=== PATIENT | female | born 1985 | race Caucasian/White ===

== ENCOUNTER 2017-12-13 00:06 | Emergency (ER) | payer OTHER ==
[2017-12-13 01:43] LABS: Absolute Lymphocytes (CBC) 2.6 K/uL (0.7-4.9); Absolute Monocytes 0.5 K/uL (0.1-1.3); Absolute Neutrophil 3.9 K/uL (1.8-8.0); Basophils % 0.7 % (0-1.3); Eosinophils % 1.7 % (0-4.4); Hematocrit 40.6 % (36.0-45.0); Lymphocytes % 35.5 % (15.3-44.8); MCH 32.4 pg (27.0-35.0); MCV 96.7 fL (80-100); MPV 8.3 fL (7.6-11.3); Monocytes % 7.5 % (3.3-12.3)
[2017-12-13 01:48] LABS: Protime INR 0.92
[2017-12-13 02:12] LABS: Bicarbonate 25 mEq/L (21-31); Glucose Level 95 mg/dL (65-120); Potassium 3.1 mEq/L (3.6-5.0); Sodium Level 133 mEq/L (135-145)
[2017-12-13 02:18] LABS: ALT/SGPT 15 IU/L (10-60); AST/SGOT 20 IU/L (10-42); Albumin 4.4 g/dL (3.2-5.5); Alkaline Phosphatase 53 IU/L (42-121); BUN Blood Urea Nitrogen 16 mg/dL (6-20); Bilirubin Direct 0.1 mg/dL (0-0.2); Bilirubin Total 0.8 mg/dL (0.3-1.2); Creatine Phosphokinase 51 IU/L (22-269); Glomerular Filtration Rate > 90 mL/min (=/>90); Magnesium 1.8 mg/dL (1.8-2.5); Protein, Total 7.1 g/dL (6.0-8.3)
[2017-12-13] MEDS ORDERED: NA CHLORIDE 0.9% 1,000 ML ONE (02:19)
[2017-12-13] MEDS ORDERED: KCL 20 MEQ/100 mL IVPB 20 MEQ/100 ML BAG IV ONE (02:20)
[2017-12-13 02:53] LABS: Thyroid Stimulating Hormone 6.86 uIU/mL (0.34-5.60)
--- NOTE | 2017-12-13 03:35 | EDPHYS ---
Physician Documentation [facility] Name: Sarai Sanches Age: 32 yrs Sex: Female : 1985 Arrival Date: 12/13/2017 Time: 00:08 Bed 25 Private MD: GENARO Physician Leroy Nieves HPI: 12/13 02:01 This 32 yrs old Female presents to ER via Ambulatory with complaints of Chest snw Pain, Nausea. 02:01 The patient or guardian reports chest pain that is located primarily in the anterior snw chest wall, bilaterally. The pain radiates to left back. Associated signs and symptoms: Pertinent positives: nausea. The chest pain is described as sharp, stabbing. Duration: The patient or guardian reports multiple episodes, that wax and wane. Severity of pain: At its worst the pain was moderate severe. The patient has experienced similar episodes in the past, trying to figure out what is happening over the past two weeks. Pt with hx of migraines. Had MRI which was normal. Pt had thyroidectomy in 2014. Two weeks later she had a seizure and struck her head, continued headaches constituted a repeat MRI which then showed a lacunar infarct. Hx of HTN. Father with hx of CVA at 33 years of age. . Had recent Echo and carotid doppler ultrasound that was negative.. 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 - Social history:: Smoking status: Patient/guardian denies using tobacco, Patient uses alcohol, occasionally. Patient/guardian denies using street drugs, IV drugs. ROS: 01:51 Constitutional: Negative for fever, chills, and weight loss, Eyes: Negative for injury, snw pain, redness, and discharge, ENT: Negative for injury, pain, and discharge, Neck: Negative for injury, pain, and swelling. 01:51 Back: Negative for injury and pain, : Negative for injury, bleeding, discharge, and swelling, MS/Extremity: Negative for injury and deformity, Skin: Negative for injury, rash, and discoloration, Neuro: Negative for headache, weakness, numbness, tingling, and seizure. 01:51 Cardiovascular: Positive for chest pain, of the anterior aspect of right upper chest, anterior aspect of left upper chest and left lateral posterior chest, palpitations. 01:51 Respiratory: Positive for dyspnea on exertion. 01:51 Abdomen/GI: Positive for nausea. Exam: 01:51 Constitutional: This is a well developed, well nourished patient who is awake, alert, snw and in no acute distress. Head/Face: Normocephalic, atraumatic. Eyes: Pupils equal round and reactive to light, extra-ocular motions intact. Lids and lashes normal. Conjunctiva and sclera are non-icteric and not injected. Cornea within normal limits. Periorbital areas with no swelling, redness, or edema. ENT: Nares patent. No nasal discharge, no septal abnormalities noted. Tympanic membranes are normal and external auditory canals are clear. Oropharynx with no redness, swelling, or masses, exudates, or evidence of obstruction, uvula midline. Mucous membranes moist. Neck: Trachea midline, no thyromegaly or masses palpated, and no cervical lymphadenopathy. Supple, full range of motion without nuchal rigidity, or vertebral point tenderness. No Meningismus. Chest/axilla: Normal chest wall appearance and motion. Nontender with no deformity. No lesions are appreciated. 01:51 Respiratory: Lungs have equal breath sounds bilaterally, clear to auscultation and percussion. No rales, rhonchi or wheezes noted. No increased work of breathing, no retractions or nasal flaring. Abdomen/GI: Soft, non-tender, with normal bowel sounds. No distension or tympany. No guarding or rebound. No evidence of tenderness throughout. Back: No spinal tenderness. No costovertebral tenderness. Full range of motion. MS/ Extremity: Pulses equal, no cyanosis. Neurovascular intact. Full, normal range of motion. Neuro: Awake and alert, GCS 15, oriented to person, place, time, and situation. Cranial nerves II-XII grossly intact. Motor strength 5/5 in all extremities. Sensory grossly intact. Cerebellar exam normal. Normal gait. Psych: Awake, alert, with orientation to person, place and time. Behavior, mood, and affect are within normal limits. 01:51 Cardiovascular: Rate: tachycardic, Rhythm: regular, Pulses: no pulse deficits are appreciated, Heart sounds: normal, Edema: is not appreciated, JVD: is not appreciated. 01:51 Skin: mottled at head and neck, cyanosis to fingertips (Raynaud's). Vital Signs: 00:37 BP 144 / 97; Pulse 92; Resp 16; Temp 98.1(O); Pulse Ox 99% on R/A; Weight 74.84 kg; ao Height 5 ft. 4 in. (162.56 cm); 02:09 BP 135 / 86; Pulse 90; Resp 16; Pulse Ox 100% on R/A; ao 03:25 BP 133 / 84; Pulse 84; Resp 14; Pulse Ox 100% on R/A; Pain 4/10; ao 04:55 BP 140 / 55; Pulse 82; Resp 16; Pulse Ox 100% on R/A; ao 00:37 Body Mass Index 28.32 (74.84 kg, 162.56 cm) ao MDM: 00:54 Patient medically screened. anne marie 03:04 Data reviewed: vital signs, nurses notes. Data interpreted: Pulse oximetry: on room air snw is 100 %. Interpretation: normal. Counseling: I had a detailed discussion with the patient and/or guardian regarding: the historical points, exam findings, and any diagnostic results supporting the discharge/admit diagnosis, the presence of at least one elevated blood pressure reading (>120/80) during this emergency department visit, lab results, radiology results. Physician consultation: Leroy Nieves MD was called at 03:05, was contacted at 03:05, regarding CT followup and dispo. 12/13 00:55 Order name: Basic Metabolic Panel; Complete Time: 03:33 snw 12/13 00:55 Order name: BNP; Complete Time: 02:12 snw 12/13 00:55 Order name: CBC with Diff; Complete Time: 02:12 snw 12/13 00:55 Order name: Ckmb; Complete Time: 03:33 snw 12/13 00:55 Order name: CPK; Complete Time: 03:33 snw 12/13 00:55 Order name: LFT's; Complete Time: 03:33 snw 12/13 00:55 Order name: Magnesium; Complete Time: 03:33 snw 12/13 00:55 Order name: PT-INR; Complete Time: 02:12 snw 12/13 00:55 Order name: Ptt, Activated; Complete Time: 02:12 snw 12/13 00:55 Order name: Troponin (emerg Dept Use Only); Complete Time: 02:12 snw 12/13 00:55 Order name: XRAY Chest (1 view); Complete Time: 17:48 snw 12/13 00:55 Order name: TSH; Complete Time: 03:33 snw 12/13 00:55 Order name: Test, Serum; Complete Time: 03:33 snw 12/13 02:54 Order name: T4 Free; Complete Time: 03:33 EDMS 12/13 00:55 Order name: EKG; Complete Time: 00:56 snw 12/13 00:55 Order name: Cardiac monitoring; Complete Time: 01:08 snw 12/13 00:55 Order name: EKG - Nurse/Tech; Complete Time: 01:08 snw 12/13 00:55 Order name: IV Saline Lock; Complete Time: 01:08 snw 12/13 00:55 Order name: Labs collected and sent; Complete Time: 01:08 snw 12/13 00:55 Order name: O2 Per Protocol; Complete Time: 01:08 snw 12/13 00:55 Order name: O2 Sat Monitoring; Complete Time: 01:08 snw 12/13 00:55 Order name: CT Chest For PE Angio; Complete Time: 17:48 snw Administered Medications: 02:30 Drug: Potassium Chloride 20 mEq Route: IV; Rate: calculated rate; Site: left ao antecubital; 06:24 Follow up: IV Status: Completed infusion; IV Intake: 1000ml ao 02:30 Drug: NS 0.9% 1000 ml Route: IV; Rate: 1 bolus; Site: left antecubital; ao 06:24 Follow up: IV Status: Completed infusion; IV Intake: 1000ml ao Disposition: 03:34 Co-signature as Attending Physician, Leroy Nieves MD I agree with the assessment and anne marie plan of care. Disposition: 12/13/17 03:34 Discharged to Home. Impression: Chest pain, unspecified, Hypokalemia. - Condition is Stable. - Discharge Instructions: Nonspecific Chest Pain, Potassium Content of Foods, Hypertension, Aspirin and Your Heart, Hypokalemia. - Prescriptions for Protonix 40 mg Oral Tablet - take 1 tablet by ORAL route once daily; 30 tablet. - Medication Reconciliation Form, Thank You Letter, Antibiotic Education, Prescription Opioid Use, Work release form form. - Follow up: Private Physician; When: 1 - 2 days; Reason: Recheck today's complaints, Continuance of care, Re-evaluation by your physician. Follow up: Emergency Department; When: As needed; Reason: Trouble breathing, Worsening of condition. Signatures: Dispatcher [employer] Leroy Daniels MD MD cha Therrien, Shelly, HOLLOW HANDLE BENCH WORKER-C HOLLOW HANDLE BENCH WORKER-Csnw Justin Arshad, RN YOVANA hayden
--- NOTE | 2017-12-13 03:35 | ER ---
Nurse's Notes [facility] Name: Sarai Sanches Age: 32 yrs Sex: Female : 1985 Arrival Date: 12/13/2017 Time: 00:08 Bed 25 Private MD: Diagnosis: Chest pain, unspecified;Hypokalemia Presentation: 12/13 00:22 Presenting complaint: Patient states: "I have chest pain that come and goes for few ao weeks. Today it started about 1999." Patient complains of dizziness and SOB also. Pain is described as stabbing in in the right side and over the left breast. Pain radiates to the left shoulder and neck. Transition of care: patient was not received from another setting of care. Onset of symptoms was December 12, 2017 at 20:00. Care prior to arrival: None. 00:22 Method Of Arrival: Ambulatory ao 00:22 Acuity: MARTINA 3 ao Triage Assessment: 01:09 General: Appears in no apparent distress. uncomfortable, Behavior is calm, cooperative, ao appropriate for age. Pain: Complains of pain in chest Pain radiates to Left shoulder and neck Pain currently is 6 out of 10 on a pain scale. Quality of pain is described as stabbing. EENT: No signs and/or symptoms were reported regarding the EENT system. Neuro: Level of Consciousness is awake, alert, obeys commands, Oriented to person, place, time, situation, Appropriate for age Moves all extremities. Speech is normal, Facial symmetry appears normal, Pupils are PERRLA. Cardiovascular: Patient's skin is warm and dry. Respiratory: Airway is patent Respiratory effort is even, unlabored, Respiratory pattern is regular, symmetrical. GI: Abdomen is non-distended. : No signs and/or symptoms were reported regarding the genitourinary system. Derm: Skin is intact, Skin is pink, warm \\T\\ dry. Skin temperature is warm. Musculoskeletal: Circulation, motion, and sensation intact. 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 - Social history:: Smoking status: Patient/guardian denies using tobacco, Patient uses alcohol, occasionally. Patient/guardian denies using street drugs, IV drugs. Screenin:09 Abuse screen: Denies threats or abuse. Denies injuries from another. Nutritional ao screening: No deficits noted. Tuberculosis screening: No symptoms or risk factors identified. Fall Risk None identified. Assessment: 01:10 General: See Triage notes. ao 01:10 Pain: Complains of pain in chest. ao 01:11 Pain: Pain began 4 hours ago. ao 02:09 Reassessment: Patient appears in no apparent distress at this time. Patient and/or ao family updated on plan of care and expected duration. Pain level reassessed. Patient is alert, oriented x 3, equal unlabored respirations, skin warm/dry/pink. Patient is alert/active/playful, equal unlabored respirations, skin warm/dry/pink. 03:25 Reassessment: Patient appears in no apparent distress at this time. Patient and/or ao family updated on plan of care and expected duration. Pain level reassessed. Patient is alert, oriented x 3, equal unlabored respirations, skin warm/dry/pink. Patient is getting fluids and potassium at this moment. 04:05 Reassessment: Patient continues to get fluids and potassium before she can be ao discharge. Potassium has about 1 hour left. 05:02 Reassessment: DC Instructions given to patient. Patient agree with the POC and to ao follow up with PCP. Patient has no questions at this time. Vital Signs: 00:37 BP 144 / 97; Pulse 92; Resp 16; Temp 98.1(O); Pulse Ox 99% on R/A; Weight 74.84 kg; ao Height 5 ft. 4 in. (162.56 cm); 02:09 BP 135 / 86; Pulse 90; Resp 16; Pulse Ox 100% on R/A; ao 03:25 BP 133 / 84; Pulse 84; Resp 14; Pulse Ox 100% on R/A; Pain 4/10; ao 04:55 BP 140 / 55; Pulse 82; Resp 16; Pulse Ox 100% on R/A; ao 00:37 Body Mass Index 28.32 (74.84 kg, 162.56 cm) ao ED Course: 00:08 Patient arrived in ED. do 00:13 Justin Arshad, RN is Primary Nurse. ao 00:26 Triage completed. ao 00:32 Arm band placed on right wrist. Patient placed in an exam room, on a stretcher, on ao quality assurance monitor body, on pulse oximetry. 00:53 Peggy Franklin FNP-C is PHCP. snw 00:53 Leroy Nieves MD is Attending Physician. snw 01:00 Initial lab(s) drawn, by me. Inserted saline lock: 20 gauge in left antecubital area, fc using aseptic technique. Blood collected. 01:11 Patient has correct armband on for positive identification. Pulse ox on. NIBP on. ao 01:12 Patient maintains SpO2 saturation greater than 95% on room air. ao 01:20 Radiology exam delayed due to lab results not completed at this time. (BUN/Creatinine). nj 02:18 X-ray completed. Portable x-ray completed in exam room. Patient tolerated procedure kw well. 02:20 XRAY Chest (1 view) In Process Unspecified. EDMS 03:03 CT Chest For PE Angio In Process Unspecified. EDMS 05:01 No provider procedures requiring assistance completed. IV discontinued, intact, ao bleeding controlled, No redness/swelling at site. Pressure dressing applied. Administered Medications: 02:30 Drug: Potassium Chloride 20 mEq Route: IV; Rate: calculated rate; Site: left ao antecubital; 06:24 Follow up: IV Status: Completed infusion; IV Intake: 1000ml ao 02:30 Drug: NS 0.9% 1000 ml Route: IV; Rate: 1 bolus; Site: left antecubital; ao 06:24 Follow up: IV Status: Completed infusion; IV Intake: 1000ml ao Intake: 06:24 IV: 1000ml; Total: 1000ml. ao 06:24 IV: 1000ml; Total: 2000ml. ao Outcome: 03:34 Discharge ordered by . anne marie 05:01 Discharged to home ambulatory. ao 05:01 Condition: stable 05:01 Discharge instructions given to patient, Instructed on discharge instructions, follow up and referral plans. Demonstrated understanding of instructions, follow-up care, Prescriptions given X 1. 05:04 Patient left the ED. ao Signatures: Dispatcher [employer] EDLeroy Villalba MD MD cha Therrien, Shelly, ELECTRONICS LEAD-C ELECTRONICS LEAD-Csnw Mica Maya, RN RN Alicia Xiong Alex RN RN Kavita Armenta, Alexis ware Corrections: (The following items were deleted from the chart) 02:09 01:10 Reassessment: Patient appears in no apparent distress at this time. Patient ao and/or family updated on plan of care and expected duration. Pain level reassessed. Patient is alert, oriented x 3, equal unlabored respirations, skin warm/dry/pink. Patient is alert/active/playful, equal unlabored respirations, skin warm/dry/pink. ao
--- NOTE | 2017-12-13 07:01 | EKG ---
Test Date: 2017-12-13 Test Time: 00:31:15 Can Washer: CARLYLE MEASUREMENT RESULTS: Intervals: Rate: 87 HI: 112 QRSD: 94 QT: 382 QTc: 459 [place]: P: 1 HI: 112 QRS: 44 T: 26 INTERPRETIVE STATEMENTS: Normal sinus rhythm Normal ECG No previous ECG available for comparison Electronically Signed On 12-13-17 07:01:10 CDT by Alonso Ruano
--- NOTE | 2017-12-13 07:22 | RAD REPORT ---
EXAM DESCRIPTION: CT - Chest For Pe Angio - 12/13/2017 6:48 am CLINICAL HISTORY: Chest pain for several weeks. Shortness of breath COMPARISON: None. TECHNIQUE: Dynamically enhanced axial 3 mm thick images of the chest were obtained during administra tion of <100> mL Isovue 370 IV contrast. Coronal and oblique reconstruction images were generated and reviewed. Exam utilizes a protocol for optimal evaluation of pulmonary arterial tree. A preliminary report was generated by virtual radiologic and reviewed prior to this dictation All CT scans are performed using dose optimization technique as appropriate and may include automated exposure control or mA/KV adjustment according to patient size. FINDINGS: A pulmonary embolus is not seen. A thoracic aortic aneurysm is not noted. A pleural effusion is not seen. A pericardial effusion is not seen. A lung consolidation is not present. Bilateral breast implants are present. A subcentimeter right thy roid nodule is present IMPRESSION: Negative for a pulmonary embolism.
--- NOTE | 2017-12-13 08:11 | RAD REPORT ---
EXAM DESCRIPTION: Scott Single View12/13/2017 2:23 am CLINICAL HISTORY: Chest pain COMPARISON: none FINDINGS: The lungs appear clear of acute infiltrate. The heart is normal size IMPRESSION: No acute abnormalities displayed
== END 2017-12-13 05:04 | disposition home or self-care (01) ==
LOC: ER 00:06
DX: E87.6 Hypokalemia (principal); I10 Essential (primary) hypertension; Z79.82 Long term (current) use of aspirin; Z86.73 Personal history of transient ischemic attack (TIA), and cerebral infarction without residual deficits
CPT/HCPCS: 36415; 71045; 71275; 80048; 80076; 82550; 82553; 83735; 83880; 84439; 84443; 84484; 84703; 85025; 85610; 85730; 93005; 96361; 96365; 96366; 99284; J7030; Q9967

== ENCOUNTER 2018-05-03 14:55 | Emergency (ER) | payer OTHER ==
--- OUTSIDE RECORDS SUMMARY | 2018-05-03 14:59 | XMS REPORT | Encounter Summary ---
:1985 Author Reason for Visit Immunization Instructions 1. Immunization Adacel (Tdap Adolesn/Adult)(PF)2Lf-(2.5-5-3-5mcg)-5 Lf/0.5 mL IM susp 2. Counseling Discussion Note: None recorded.Patient educational handouts: No information available. Plan of Care Reminders Provider Appointments None recorded. Lab None recorded. Referral None recorded. Procedures None recorded. Surgeries None recorded. Imaging None recorded. Medications Name Start Date acetaminophen 300 mg-codeine 30 mg tablet TAKE 1 OR 2 TABS BY MOUTH EVERY 4 TO 6 HOURS amoxicillin 875 mg-potassium clavulanate 125 mg tablet TAKE 1 TABLET BY MOUTH EVERY 12 HOURS FOR 7 DAYS azithromycin 250 mg tablet oxibmxeowaaevfu-jkuqwosyvusrvyw-RD 2 mg-30 mg-10 mg/5 mL syrup buspirone 10 mg tablet cefuroxime axetil 500 mg tablet ciprofloxacin 500 mg tablet TAKE 1 TABLET BY MOUTH FOR 5 DAYS cyanocobalamin (vit B-12) 1,000 mcg/mL injection solution cyclobenzaprine 5 mg tablet TAKE 1 TABLET BY MOUTH 3 TIMES A DAY NEEDED fluconazole 150 mg tablet TAKE 1 TABLET BY MOUTH FOR 1 DOSE hydrocodone 10 mg-acetaminophen 325 mg tablet TK 1 TO 2 TS PO Q 4 TO 6 H PRN hydrocodone 5 mg-acetaminophen 325 mg tablet hydroxyzine HCl 50 mg tablet TK 1 T PO BID PRF ANXIETY AND 2 TS HS PRN lamotrigine 100 mg tablet TK 1 T PO BID lamotrigine 25 mg tablet levothyroxine 75 mcg tablet TAKE ONE (1) TABLET(S) BY MOUTH DAILY. ONCE DAILY ON EMPTY STOMACH ORALLY 90 DAYS meloxicam 15 mg tablet methylprednisolone 4 mg tablets in a dose pack metronidazole 500 mg tablet TAKE 1 TABLET BY MOUTH TWICE A DAY FOR 7 DAYS nadolol 40 mg tablet 1 TABLET ONCE A DAY ORALLY 90 DAYS nitrofurantoin monohydrate/macrocrystals 100 mg capsule TAKE ONE CAPSULE BY MOUTH TWICE A DAY FOR 7 DAYS ProAir HFA 90 mcg/actuation aerosol inhaler INHALE 2 PUFFS EVERY 4 HOURS NEEDED sertraline 50 mg tablet Strattera 40 mg capsule TAKE 1 CAPSULE BY MOUTH TWICE DAILY tramadol 50 mg tablet TAKE 1 TABLET BY MOUTH EVERY 6 HOURS NEEDED FOR SEVERE PAIN trazodone 100 mg tablet Trintellix 10 mg tablet venlafaxine ER 150 mg capsule,extended release 24 hr TAKE ONE CAPSULE BY MOUTH EVERY DAY WITH FOOD venlafaxine ER 75 mg capsule,extended release 24 hr TAKE ONE (1) CAPSULE(S) BY MOUTH ONCE A DAY WITH FOOD. Medications Administered None recorded. Vitals None recorded. Lab Results None recorded. Allergies None recorded. Problems None recorded. Procedures None recorded. Vaccine List Vaccine Type Tdap 02/01/20170.5 mL Social History None recorded. Past Encounters 02/01/2017 Immunization; Counseling Neela Arshad PA-C: [address] [place] [address], Ph. History of Present Illness Immunization Reported By: Patient HPI: Immunization Request (normal) no symptoms. Immunization eligibility questions No vaccines in last month, No reaction to previous vaccines:, No Known Allergies Review of Systems Basic Reported By: Patient Constitutional: Constitutional: no fever Physical Exam Immunization Reported By: Patient General Appearance: General: well-developed, well-nourished, no acute distress
--- OUTSIDE RECORDS SUMMARY | 2018-05-03 14:59 | XMS REPORT | Continuity of Care Document ---
:1985 Author Organization Interface Problems Problem Status Onset Classification Date Comments Source Date Reported Immunization 02/02/20 Diagnosis 02/01/2017 [facility] 17 Counseling 02/02/20 Diagnosis 02/01/2017 [facility] 17 Anxiety Active Problem 04/21/2015 [facility] Hypothyroid Active Problem 04/21/2015 [facility] Migraine with Active Problem 02/06/2017 [facility] aura and without Family & status Internal Med migrainosus, not Assoc intractable Need for Active Diagnosis 02/06/2017 [facility] tuberculosis [facility] vaccination [facility] Seizures Active Problem 02/06/2017 [facility] Carpal tunnel Active Problem 02/06/2017 [facility] Acute cystitis Active Problem 02/06/2017 [facility] with hematuria [facility] Anxiety Active Problem 02/06/2017 [facility] Acquired Active Problem 02/06/2017 [facility] hypothyroidism [facility] ADHD Active Problem 02/06/2017 [facility] Insomnia Active Problem 02/06/2017 [facility] Thrombocytosis Active Diagnosis 04/21/2015 [facility] Encounter to Active Diagnosis 04/21/2015 [facility] discuss test [facility] results [facility] Hypercalcemia Active Diagnosis 04/21/2015 [facility] Intervertebral Active Diagnosis 04/21/2015 [facility] disc protrusion [facility] Hyperkalemia Active Diagnosis 04/21/2015 [facility] Routine general Active Diagnosis 01/07/2016 [facility] examination at a [facility] facility Palpitations Active Diagnosis 06/13/2016 [facility] SOB Active Diagnosis 05/06/2016 [facility] Chest pain Active Diagnosis 05/06/2016 [facility] Follow up Active Diagnosis 01/02/2017 [facility] Acute Active Diagnosis 10/21/2016 [facility] non-recurrent [facility] maxillary [facility] sinusitis [facility] Acute vaginitis Active Diagnosis 06/13/2016 [facility] Dysuria Active Diagnosis 06/13/2016 [facility] Medications Medication Details Route Status Patient Ordering Order Source Instructions Provider Date Zithromax Z-Jose 2 tablets Orally Active 250 MG Orally [place] [facility] on the first Once a day 2017 Family & day, then 1 Internal tablet daily Med Assoc for 4 days Bromfed DM 10 ml as Orally Active 30-2-10 Os[facility] needed MG/5ML Orally 2017 Family & every 6 hrs Internal [facility] Metronidazole 1 tablet Orally Active 500 MG Orally [facility] twice a day 2016 [facility] & (bid) [facility] Diflucan 1 tablet Orally Active 150 MG Orally [facility] Once a day 2016 [facility] Macrobid 1 capsule Orally Active 100 MG Orally [facility] with food twice a day 2016 [facility] (bid) [facility] Cipro 1 tablet Orally Active 500 MG Orally [place] [facility] Twice a day 2016 [facility] Diflucan 1 tablet Orally Active 150 MG Orally [place] [facility] once, and 2016 Family & another in 72 Internal hours [facility] ProAir HFA 2 puffs as Inhalation Active 108 (90 Base) [place] [facility] needed MCG/ACT 2016 Family & Inhalation Internal every 4 hrs, Med [facility] prn Augmentin 1 tablet Orally Active 875-125 MG [place] [facility] Orally every 2016 Family & 12 hrs [facility] Strattera 1 capsule Orally Active 40 mg Orally Ghebranious [facility] for first 2016 Family & week, can Internal increase to Med [facility] twice a day afterwards Effexor XR 1 capsule Orally Active 150 MG Orally [place] [facility] with food Once a day 2016 [facility] Silenor 1 tablet at Orally Active 6 MG Orally [place] [facility] bedtime Once a day 2016 [facility] Nadolol 1 tablet Orally Active 40 mg Orally [place] [facility] Once a day 2016 [facility] Effexor XR 1 capsule Orally No 75 mg Orally [place] [facility] with food Longer Once a day 2016 [facility] Active [facility] Meloxicam 1 tablet Orally Active 7.5 MG Orally Mat[place] Once a day 2014 [facility] Lexapro 1 tablet Orally No 20 mg Orally [place] Longer Once a day 2014 [facility] Active [facility] Acetaminophen acetaminophe Active [facility] 300 MG / n 300 Codeine mg-codeine Phosphate 30 MG 30 mg tablet Oral Tablet TAKE 1 OR 2 TABS BY MOUTH EVERY 4 TO 6 HOURS Amoxicillin 875 amoxicillin Active [facility] MG / 875 Clavulanate 125 mg-potassium MG Oral Tablet clavulanate 125 mg tablet TAKE 1 TABLET BY MOUTH EVERY 12 HOURS FOR 7 DAYS Azithromycin azithromycin Active [facility] 250 MG Oral 250 mg Tablet tablet Brompheniramine brompheniram Active [facility] Maleate 0.4 ine-pseudoep MG/ML / hedrine-DM 2 Dextromethorpha mg-30 mg-10 n Hydrobromide mg/5 mL 2 MG/ML / syrup Pseudoephedrine Hydrochloride 6 MG/ML Oral Solution buspirone buspirone 10 Active [facility] hydrochloride mg tablet 10 MG Oral Tablet Cefuroxime 500 cefuroxime Active [facility] MG Oral Tablet axetil 500 mg tablet Ciprofloxacin ciprofloxaci Active [facility] 500 MG Oral n 500 mg Tablet tablet TAKE 1 TABLET BY MOUTH FOR 5 DAYS Vitamin B 12 1 cyanocobalam Active [facility] MG/ML in (vit Injectable B-12) 1,000 Solution mcg/mL injection solution Cyclobenzaprine cyclobenzapr Active [facility] hydrochloride 5 ine 5 mg MG Oral Tablet tablet TAKE 1 TABLET BY MOUTH 3 TIMES A DAY NEEDED Fluconazole 150 fluconazole Active [facility] MG Oral Tablet 150 mg tablet TAKE 1 TABLET BY MOUTH FOR 1 DOSE Acetaminophen hydrocodone Active [facility] 325 MG / 10 Hydrocodone mg-acetamino Bitartrate 10 phen 325 mg MG Oral Tablet tablet TK 1 TO 2 TS PO Q 4 TO 6 H PRN Acetaminophen hydrocodone Active [facility] 325 MG / 5 Hydrocodone mg-acetamino Bitartrate 5 MG phen 325 mg Oral Tablet tablet Hydroxyzine hydroxyzine Active [facility] Hydrochloride HCl 50 mg 50 MG Oral tablet TK 1 Tablet T PO BID PRF ANXIETY AND 2 TS HS PRN lamotrigine 100 lamotrigine Active [facility] MG Oral Tablet 100 mg tablet TK 1 T PO BID lamotrigine 25 lamotrigine Active [facility] MG Oral Tablet 25 mg tablet Levothyroxine levothyroxin Active [facility] Sodium 0.075 MG e 75 mcg Oral Tablet tablet TAKE ONE (1) TABLET(S) BY MOUTH DAILY. ONCE DAILY ON EMPTY STOMACH ORALLY 90 DAYS meloxicam 15 MG meloxicam 15 Active [facility] Oral Tablet mg tablet Metronidazole metronidazol Active [facility] 500 MG Oral e 500 mg Tablet tablet TAKE 1 TABLET BY MOUTH TWICE A DAY FOR 7 DAYS Nadolol 40 MG nadolol 40 Active [facility] Oral Tablet mg tablet 1 TABLET ONCE A DAY ORALLY 90 DAYS NITROFURANTOIN, nitrofuranto Active [facility] MACROCRYSTALS in 25 MG / monohydrate/ Nitrofurantoin, macrocrystal Monohydrate 75 s 100 mg MG Oral Capsule capsule TAKE ONE CAPSULE BY MOUTH TWICE A DAY FOR 7 DAYS 200 ACTUAT ProAir HFA Active [facility] Albuterol 0.09 90 MG/ACTUAT mcg/actuatio Metered Dose n aerosol Inhaler inhaler [ProAir] INHALE 2 PUFFS EVERY 4 HOURS NEEDED Sertraline 50 sertraline Active [facility] MG Oral Tablet 50 mg tablet atomoxetine 40 Strattera 40 Active [facility] MG Oral Capsule mg capsule [Strattera] TAKE 1 CAPSULE BY MOUTH TWICE DAILY tramadol tramadol 50 Active [facility] hydrochloride mg tablet 50 MG Oral TAKE 1 Tablet TABLET BY MOUTH EVERY 6 HOURS NEEDED FOR SEVERE PAIN Trazodone trazodone Active [facility] Hydrochloride 100 mg 100 MG Oral tablet Tablet vortioxetine 10 Trintellix Active [facility] MG Oral Tablet 10 mg tablet [Trintellix] 24 HR venlafaxine Active [facility] venlafaxine 150 ER 150 mg MG Extended capsule,exte Release Oral nded release Capsule 24 hr TAKE ONE CAPSULE BY MOUTH EVERY DAY WITH FOOD 24 HR venlafaxine Active [facility] venlafaxine 75 ER 75 mg MG Extended capsule,exte Release Oral nded release Capsule 24 hr TAKE ONE (1) CAPSULE(S) BY MOUTH ONCE A DAY WITH FOOD. BuSpar 1 tablet Orally Active 10 MG Orally [facility] Twice a day [facility] Lamictal 1 Orally Active 100 MG Orally [facility] Twice a day [facility] Nadolol 1 tablet Orally Active 40 mg Orally [place] Once a day [facility] Levothyroxine 1 tablet orally Active 75 MCG orally [place] [facility] Sodium on empty Family & stomach qd [facility] Levothyroxine take one (1) by mouth Active 50 MCG by [facility] Sodium tablet(s) by mouth once Family & mouth daily. daily on Internal empty stomach [facility] Flexeril 1 tablet Orally Active 5 MG Orally Maty [facility] once at Family & bedtime [facility] Levothyroxine take one (1) Orally Active 75 MCG Orally [facility] [place] [facility] Sodium tablet(s) by once daily on Family & mouth daily. empty stomach [facility] Levothyroxine take one (1) Orally Active 75 MCG Orally [place]elle [facility] Sodium tablet(s) by once daily on Family & mouth daily. empty stomach [facility] BuSpar 1 tablet Orally Active 10 MG Orally [facility] Twice a day [facility] Strattera TAKE 1 NA No 40 MG [place] [facility] CAPSULE BY [place] [facility] & MOUTH TWICE Active Internal DAILY [facility] Allergies, Adverse Reactions, Alerts Substance Category Reaction Severity Reaction Status Date Comments Source type Reported Cymbalta Adverse Info Not Adverse Active [facility] Reaction Available Reaction 7 [facility] Ambien Adverse Info Not Adverse Active [facility] Reaction Available Reaction 7 [facility] Immunizations Immunization Date Given Site Status Last Comments Source Updated Tdap 02/01/2017 completed [facility] Results Order Results Value Reference Date Interpretation Comments Source Name Range Vital Signs Vital Sign Value Date Comments Source Weight 159 12/29/2016 [facility] Height 64 12/29/2016 [facility] Heart Rate 83 12/29/2016 [facility] Diastolic (mm Hg) 74 12/29/2016 [facility] Systolic (mm Hg) 138 12/29/2016 [facility] Weight 158 10/18/2016 [facility] Height 64 10/18/2016 [facility] Temperature Oral (F) 98.0 F 10/18/2016 [facility] Heart Rate 53 10/18/2016 [facility] Diastolic (mm Hg) 70 10/18/2016 [facility] Systolic (mm Hg) 110 10/18/2016 [facility] Weight 144 06/08/2016 [facility] Height 64 06/08/2016 [facility] Heart Rate 72 06/08/2016 [facility] Diastolic (mm Hg) 72 06/08/2016 [facility] Systolic (mm Hg) 115 06/08/2016 [facility] Weight 145 05/19/2016 [facility] Height 64 05/19/2016 [facility] Heart Rate 65 05/19/2016 [facility] Diastolic (mm Hg) 67 05/19/2016 [facility] Systolic (mm Hg) 110 05/19/2016 [facility] Weight 145 05/04/2016 [facility] Height 64 05/04/2016 [facility] Heart Rate 65 05/04/2016 [facility] Diastolic (mm Hg) 67 05/04/2016 [facility] Systolic (mm Hg) 110 05/04/2016 [facility] Weight 143 03/29/2016 [facility] Height 64 03/29/2016 [facility] Heart Rate 74 03/29/2016 [facility] Diastolic (mm Hg) 70 03/29/2016 [facility] Systolic (mm Hg) 110 03/29/2016 [facility] Weight 141 02/03/2016 [facility] Height 64 02/03/2016 [facility] Heart Rate 68 02/03/2016 [facility] Diastolic (mm Hg) 72 02/03/2016 [facility] Systolic (mm Hg) 116 02/03/2016 [facility] Weight 149 01/05/2016 [facility] Height 64 01/05/2016 [facility] Heart Rate 80 01/05/2016 [facility] Diastolic (mm Hg) 60 01/05/2016 [facility] Systolic (mm Hg) 120 01/05/2016 [facility] Weight 142 04/19/2015 [facility] Height 64 04/19/2015 [facility] Heart Rate 89 04/19/2015 [facility] Diastolic (mm Hg) 70 04/19/2015 [facility] Systolic (mm Hg) 112 04/19/2015 [facility] Encounters Location Location Encounter Encounter Reason Attending ADM DC Status Source Details Type Number For Provider Date Date Visit [facility] Unknown [id number] 04/17 04/17 [facility] [id number] /[facility] [id number] Internal and [id number] [facility] Unknown [id number] 04/17 04/17 [facility] [id number] /2014 [facility] [id number] Internal and [id number] [facility] Unknown [id number] 04/17 04/17 [facility] [id number] /2014 [facility] [id number] Internal and 20fa92 [facility] Unknown [id number] 04/17 04/17 [facility] [id number] /2014 [facility] [id number] Internal and [id number] [facility] Unknown [id number] 04/17 04/17 [facility] [id number] /2014 [facility] [id number] Internal and 6d47fe [facility] Unknown [id number] 04/17 04/17 [facility] [id number] /2014 [facility] [id number] Internal and [id number] [facility] Unknown [id number] 04/17 04/17 [facility] [id number] /2014 [facility] [id number] Internal and [id number] [facility] Unknown [id number] 04/17 04/17 [facility] [id number] /2014 [facility] [id number] Internal and f068cf [facility] Unknown [id number] 04/17 04/17 [facility] [id number] /2014 [facility] [id number] Internal and [id number] [facility] Unknown [id number] 04/17 04/17 [facility] [id number] /2014 [facility] [id number] Internal and fa11af [facility] Unknown [id number] 04/17 04/17 [facility] [id number] /2014 [facility] [id number] Internal and [id number] [facility] Unknown [id number] 04/17 04/17 [facility] [id number] /2014 [facility] [id number] Internal and a01db9 [facility] Unknown [id number] 04/17 04/17 [facility] [id number] /2014 [facility] [id number] Internal and 90b042 [facility] Unknown [id number] 04/17 04/17 [facility] [id number] /2014 [facility] [id number] Internal and [id number] [facility] Unknown [id number] 04/17 04/17 [facility] [id number] /2014 [facility] [id number] Internal and [id number] [facility] Unknown [id number] 04/17 04/17 [facility] [id number] /2014 [facility] [id number] Internal and 6x5198 [facility] results [id number] 04/19 04/19 [facility] [id number]-[id number] /2014 [facility] [id number] Internal and 619f17 [facility] [place] results [id number] 04/19 04/19 [facility] [id number] /2014 [facility] [id number] Internal and ec9e3a [facility] results [id number] 04/19 04/19 [facility] [id number] /2014 [facility] [id number] Internal and 20df47 [facility] results [id number] 04/19 04/19 [facility] [id number] /2014 [facility] [id number] Internal and e9dfe4 [facility] results [id number] 04/19 04/19 [facility] [id number] /2014 [facility] [id number] Internal and 62a47c [facility] results [id number] 04/19 04/19 [facility] [id number] /2014 [facility] [id number] Internal and b4ef51 [facility] results [id number] 04/19 04/19 [facility] [id number] /2014 [facility] [id number] Internal and 4jm730 [facility] results [id number] 04/19 04/19 [facility] [id number] /2014 [facility] [id number]-[id number] Internal and 943acb [facility] results [id number] 04/19 04/19 [facility] 11a-[id number] /2014 [facility] [id number] Internal and 0fy343 [facility] results [id number] 04/19 04/19 [facility] 3ff-[id number] /2014 [facility] [id number] Internal and a20d1d [facility] results [id number] 04/19 04/19 [facility] [id number]-l /2014 [facility] [id number] Internal and 3fb33a [facility] results [id number] 04/19 04/19 [facility] [id number] /2014 [facility] [id number] Internal and 1g674y [facility] results [id number] 04/19 04/19 [facility] [id number]-[id number] /2014 [facility] 52b-02feff Internal and d15e8d [facility] results [id number] 04/19 04/19 [facility] [id number]-x /2014 [facility] [id number] Internal and eeda36 [facility] results [id number] 04/19 04/19 [facility] dbe-47ce-8 /2014 [facility] [id number] Internal and f22a1d [facility] results [id number] 04/19 04/19 [facility] [id number]-a /2014 [facility] [id number] Internal and b1s600 [facility] PHYSICAL/FBW [id number] 01/04 01/04 [facility] bfc-488d-[id number] /2015 [facility] [id number] Internal and [id number] [facility] PHYSICAL/FBW [id number] 01/04 01/04 [facility] 21c-402b-[id number] /2015 [facility] [id number] Internal and 10eb0e [facility] PHYSICAL/FBW [id number] 01/04 01/04 [facility] 57d-[id number]-b /2015 [facility] [id number] Internal and 5f28be [facility] PHYSICAL/FBW [id number] 01/04 01/04 [facility] 5ca-495d-[id number] /2015 [facility] [id number] Internal and 7e730f [facility] PHYSICAL/FBW [id number] 01/04 01/04 [facility] [id number]-p /2015 [facility] [id number]-[id number] Internal and 881e62 [facility] PHYSICAL/FBW [id number] 01/04 01/04 [facility] [id number] /2015 [facility] [id number] Internal and bcc0f6 [facility] PHYSICAL/FBW [id number] 01/04 01/04 [facility] 83d-4360-a /2015 [facility] [id number] Internal and 7d2b09 [facility] PHYSICAL/FBW [id number] 01/04 01/04 [facility] [id number]-n /2015 [facility] [id number] Internal and dee3bd [facility] PHYSICAL/FBW [id number] 01/04 01/04 [facility] 3j2-9l3y-6 /2015 [facility] [id number] Internal and 77f8f3 [facility] PHYSICAL/FBW [id number] 01/04 01/04 [facility] 7dd-43a8-8 /2015 [facility] [id number]-m61sf3 Internal and 7e36ca [facility] PHYSICAL/FBW [id number] 01/04 01/04 [facility] 8r9-099h-4 /2015 [facility] [id number] Internal and g03042 [facility] PHYSICAL/FBW [id number] 01/04 01/04 [facility] [id number] /2015 [facility] [id number] Internal and 4fb13b [facility] PHYSICAL/FBW [id number] 01/04 01/04 [facility] [id number]-a /2015 [facility] [id number]-b1aca0 Internal and d801c0 [facility] PHYSICAL/FBW [id number] 01/04 01/04 [facility] [id number]-[id number] /2015 [facility] [id number]-[id number] Internal and 8dfcb1 [facility] MEDICATION [id number] 02/02 02/02 [facility] [id number]-n /2015 [facility] [id number] Internal and 41o093 [facility] MEDICATION [id number] 02/02 02/02 [facility] [id number] /2015 [facility] [id number] Internal and 1eb8e4 [facility] MEDICATION [id number] 02/02 02/02 [facility] [id number]-0436-m /2015 [facility] [id number] Internal and f7f4a4 [facility] MEDICATION [id number] 02/02 02/02 [facility] 32d-4128-b /2015 [facility] [id number] Internal and 5098ee [facility] MEDICATION [id number] 02/02 02/02 [facility] 934-47a2-9 /2015 [facility] [id number] Internal and 82b0c6 [facility] MEDICATION [id number] 02/02 02/02 [facility] cdb-[id number]-a /2015 [facility] [id number] Internal and 78aa2f [facility] MEDICATION [id number] 02/02 02/02 [facility] 592-4383-[id number] /2015 [facility] [id number] Internal and 143e1b [facility] MEDICATION [id number] 02/02 02/02 [facility] ab4-46cd-8 /2015 [facility] [id number] Internal and [id number] [facility] MEDICATION [id number] 02/02 02/02 [facility] 6m5-5r78-p /2015 [facility] [id number] Internal and 4448ab [facility] MEDICATION [id number] 02/02 02/02 [facility] 38a-[id number]-a /2015 [facility] [id number] Internal and 7f87be [facility] MEDICATION [id number] 02/02 02/02 [facility] bfc-4428-9 /2015 [facility] [id number] Internal and f986f1 [facility] MEDICATION [id number] 02/02 02/02 [facility] [id number] /2015 [facility] [id number]-ra2sh2 Internal and 6d16ef [facility] Unknown [id number] 02/03 02/03 [facility] [id number] /2015 [facility] [id number] Internal and 5e11f2 [facility] Unknown [id number] 02/03 02/03 [facility] w55-8881-[id number] /2015 [facility] [id number] Internal and e0be77 [facility] Unknown [id number] 02/03 02/03 [facility] [id number] /2015 [facility] [id number] Internal and a1dbe1 [facility] Unknown [id number] 02/03 02/03 [facility] da2-400c-a /2015 [facility] [id number]-05ced9 Internal and 57a45b [facility] Unknown [id number] 02/03 02/03 [facility] [id number]-[id number]-[id number] /2015 [facility] [id number]-[id number] Internal and f58a66 [facility] Unknown [id number] 02/03 02/03 [facility] [id number] /2015 [facility] [id number] Internal and 9a0e9a [facility] Unknown [id number] 02/03 02/03 [facility] [id number]-[id number] /2015 [facility] [id number] Internal and ob116c [facility] Unknown [id number] 02/03 02/03 [facility] [id number] /2015 [facility] [id number] Internal and fc9ad7 [facility] Unknown [id number] 02/03 02/03 [facility] [id number]-[id number] /2015 [facility] [id number] Internal and f80f40 [facility] Unknown [id number] 02/03 02/03 [facility] [id number] /2015 [facility] [id number] Internal and 256eb7 [facility] Unknown [id number] 02/03 02/03 [facility] [id number] /2015 [facility] [id number] Internal and 2ebcdd [facility] Unknown [id number] 02/03 02/03 [facility] [id number] /2015 [facility] [id number] Internal and a3h680 [facility] Unknown [id number] 02/03 02/03 [facility] [id number]-[id number] /2015 [facility] [id number] Internal and [id number] [facility] Needs call [id number] 02/23 02/23 [facility] back from [id number] /2015 [facility] Medical [id number] Internal and Staff [id number] [facility] Needs call [id number] 02/23 02/23 [facility] back from [id number] /2015 [facility] Medical [id number] Internal and Staff [id number] [facility] Mike Needs call [id number] 02/23 02/23 Mike Family back from [id number] /2015 [facility] [id number] Internal and Staff [id number] [facility] Mike Needs call [id number] 02/23 02/23 Mike Family back from [id number]-[id number]-a /2015 [facility] [id number] Internal and Staff [id number] [facility] Mike Needs call [id number] 02/23 02/23 Mike Family back from [id number]-a /2015 [facility] [id number] Internal and Staff [id number] [facility] Mike Needs call [id number] 02/23 02/23 Mike Family back from [id number]-d /2015 [facility] [id number] Internal and Staff [id number] [facility] Mike Needs call [id number] 02/23 02/23 Mike Family back from [id number]-1 /2015 [facility] [id number] Internal and Staff [id number] [facility] Mike Needs call [id number] 02/23 02/23 Mike Family back from [id number]-b /2015 [facility] [id number] Internal and Staff [id number] [facility] Mike Needs call [id number] 02/23 02/23 Mike Family back from [id number]-1482-1 /2015 [facility] [id number] Internal and Staff [id number] [facility] Mike Needs call [id number] 02/23 02/23 Mike Family back from 236-4d45-8 /2015 [facility] [id number] Internal and Staff [id number] [facility] Mike Needs call [id number] 02/23 02/23 Mike Family back from [id number]-i /2015 [facility] [id number] Internal and Staff [id number] [facility] Mike Unknown [id number] 03/10 03/10 Mike Clarke 14e-[id number] /2015 [facility] [id number] Internal and [id number] [facility] Mike Unknown [id number] 03/10 03/10 Mike Clarke [id number] /2015 [facility] [id number] Internal and [id number] [facility] Mike Unknown [id number] 03/10 03/10 Mike Clarke 8aa-4915-b /2015 [facility] [id number] Internal and [id number] [facility] Mike Unknown [id number] 03/10 03/10 Mike Clarke 48a-[id number] /2015 [facility] [id number] Internal and 57s020 [facility] Mike Unknown [id number] 03/10 03/10 Mike Clarke 284-4631-b /2015 [facility] 09a-5dec11 Internal and 0f7c3f [facility] Mike Unknown [id number] 03/10 03/10 Mike Clarke [id number] /2015 [facility] [id number] Internal and 13737d [facility] Mike Unknown [id number] 03/10 03/10 Mike Clarke [id number]-a /2015 [facility] [id number] Internal and 2bfe45 [facility] Mike Unknown [id number] 03/10 03/10 Mike Clarke 760-400e-b /2015 [facility] [id number] Internal and [id number] [facility] Mike Unknown [id number] 03/10 03/10 Mike Clarke 953-4791-8 /2015 [facility] [id number] Internal and 507b56 [facility] Mike Unknown [id number] 03/10 03/10 Mike Clarke 38e-4890-a /2015 [facility] [id number] Internal and ca2486 [facility] Mike Thyroid [id number] 03/29 03/29 Mike Family check [id number] /2015 [facility] [id number] Internal and 2697b7 [facility] Mike Thyroid [id number] 03/29 03/29 Mike Family check 288-4e94-b /2015 [facility] [id number]-[id number] Internal and e525ea [facility] Mike Thyroid [id number] 03/29 03/29 Mike Family check [id number] /2015 [facility] [id number] Internal and [id number] [facility] Mike Thyroid [id number] 03/29 03/29 Mike Family check [id number]-[id number] /2015 [facility] [id number] Internal and 63fe00 [facility] Mike Thyroid [id number] 03/29 03/29 Mike Family check [id number] /2015 [facility] [id number] Internal and 1f5f7f [facility] Mike Thyroid [id number] 03/29 03/29 Mike Family check [id number]-b /2015 [facility] [id number] Internal and ddf4fa [facility] Mike Thyroid [id number] 03/29 03/29 Mike Family check 712-4957-8 /2015 [facility] 458-2y215s Internal and afc65e [facility] Mike Thyroid [id number] 03/29 03/29 Mike Family check [id number] /2015 [facility] [id number] Internal and f0bc0b [facility] Mike Thyroid [id number] 03/29 03/29 Mike Clarke check [id number] /2015 [facility] [id number] Internal and 0m2759 [facility] Mike Unknown [id number] 04/05 04/05 Mike Clarke [id number] /2015 [facility] [id number] Internal and [id number] [facility] Mike Unknown [id number] 04/05 04/05 Mike Clarke 44a-4040-8 /2015 [facility] [id number] Internal and 982d7c [facility] Mike Unknown [id number] 04/05 04/05 Mike Clarke [id number]-[id number] /2015 [facility] [id number] Internal and [id number] [facility] Mike Unknown [id number] 04/05 04/05 Mike Clarke 00c-49ec-b /2015 [facility] [id number] Internal and 83q422 [facility] Mike Unknown [id number] 04/05 04/05 Mike Clarke [id number] /2015 [facility] [id number] Internal and 9g908r [facility] iMke Unknown [id number] 04/05 04/05 Mike Clarke [id number] /2015 [facility] [id number] Internal and 96044e [facility] Mike Unknown [id number] 04/05 04/05 Mike Clarke [id number] /2015 [facility] [id number] Internal and [id number] [facility] Mike Unknown [id number] 04/05 04/05 Mike Clarke [id number]-[id number] /2015 [facility] [id number] Internal and [id number] [facility] Mike Having heart [id number] 05/04 05/04 Mike Clarke palpitations [id number] /2015 [facility] [id number] Internal and 5x7753 [facility] Mike Having heart [id number] 05/04 05/04 [facility] palpitations 289-4dfc-8 /2015 [facility] [id number] Internal and 1v2404 [facility] Mike Having heart [id number] 05/04 05/04 Mike Family palpitations 778-4bc2-8 /2015 [facility] [id number] Internal and 14f663 [facility] Mike Having heart [id number] 05/04 05/04 Mike Family palpitations [id number]-a /2015 [facility] [id number] Internal and z06574 [facility] Mike Having heart [id number] 05/04 05/04 Mike Family palpitations r58-76r0-5 /2015 [facility] [id number] Internal and 916376 [facility] Mike Having heart [id number] 05/04 05/04 Mike Family palpitations cfe-4089-b /2015 [facility] [id number]-f95847 Internal and e6h762 [facility] Mike Having heart [id number] 05/04 05/04 Mike Family palpitations dac-[id number]-9 /2015 [facility] 148-2af59b Internal and 60097s [facility] Miek VALADEZ/JAJA-HM [id number] 05/18 05/18 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 [id number]-b /2015 [facility] [id number] Internal and ffbe14 [facility] Mike VALADEZ/JAJA-HM [id number] 05/18 05/18 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 229-487b-a /2015 [facility] [id number]-898b4c Internal and a4fe3e [facility] [place]/JAJA-HM [id number] 05/18 05/18 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 a51-1839-l /2015 [facility] [id number]-[id number] Internal and 734a49 [facility] Mike [place]/JAJA-HM [id number] 05/18 05/18 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 99a-4275-b /2015 [facility] [id number] Internal and 41424t [facility] Mike VALADEZ/[facility] [id number] 05/18 05/18 Mike NORIEGA [id number]-l /2015 [facility] [id number] Internal and cd2b63 [facility] Mike VALADEZ/[facility] [id number] 05/18 05/18 Mike NORIEGA [id number] /2015 [facility] [id number] Internal and ebcdbf [facility] Mike RORY/NELLIE [id number] 05/19 05/19 Mike Clarke [facility] [id number] /2015 [facility] [id number] Internal and b12774 [facility] Mike RORY/NELLIE [id number] 05/19 05/19 Mike Clarke [facility] 7ad-4929-a /2015 [facility] [id number] Internal and 3d3729 [facility] Mike VALADEZ/NELLIE [id number]-[id number] 05/19 05/19 Mike Clarke [facility] 27b-43c0-9 /2015 [facility] [id number]-fddd04 Internal and 0sj882 [facility] Mike RORY/NELLIE [id number] 05/19 05/19 Mike Clarke [facility] [id number]-a /2015 [facility] [id number] Internal and f9b6fe [facility] Mike VALADEZ/NELLIE [id number] 05/19 05/19 Mike Clarke [facility] 10d-4bc5-9 /2015 [facility] [id number] Internal and a02cb4 [facility] [place] Unknown [id number] 06/06 06/06 Mike Clarke [id number]-a /2015 [facility] [id number] Internal and 70bd89 [facility] Mike Unknown [id number] 06/06 06/06 Mike Clarke 8af-[id number] /2015 [facility] [id number] Internal and 342641 [facility] Mike Unknown [id number] 06/06 06/06 Mike Clarke [id number]-n /2015 [facility] [id number] Internal and 865987 [facility] Mike Unknown [id number] 06/06 06/06 Mike Clarke 07f-[id number]-a /2015 [facility] [id number] Internal and [id number] [facility] Mike yeast [id number] 06/08 06/08 Mike Family infection [id number] /2015 [facility] [id number] Internal and 478b9d [facility] Mike yeast [id number] 06/08 06/08 Mike Family infection [id number]-d /2015 [facility] [id number] Internal and 222684 [facility] Mike yeast [id number] 06/08 06/08 Mike Family infection [id number] /2015 [facility] [id number] Internal and be9ba4 [facility] Mike Unknown [id number] 06/14 06/14 Mike Clarke 889-474a-9 /2015 [facility] [id number] Internal and eedc98 [facility] Mike Unknown [id number] 06/14 06/14 Mike Clarke 735-44d8-b /2015 [facility] [id number]-[id number] Internal and 5c35de [facility] Mike cough, runny [id number] 10/18 10/18 Mike Clarke nose de4-4155-9 /2016 [facility] [id number] Internal and 8dbf32 [facility] DARRIUS - Neela Arshad, [id number] Neela 02/01 [facility] JESUS: [address] [id number]-[id number] Jeancarlos /2016 cassidy Almaguer [id number] [address], [address] [place] [address], Ph. Procedures Procedure Code Date Perfomer Comments Source
--- OUTSIDE RECORDS SUMMARY | 2018-05-03 14:59 | XMS REPORT ---
:1985 Author Organization e[employer]Works Care Team Providers Name Role Phone Vicki Sanchez Provider Role Unavailable Allergies No Known Allergies Problems Problem Type Condition Code Onset Dates Condition Status Problem Carpal tunnel syndrome G56.00 Active Problem ADHD (attention deficit F90.9 Active hyperactivity disorder) Problem Seizures R56.9 Active Problem Acquired hypothyroidism E03.9 Active Problem Migraine with aura and without G43.109 Active status migrainosus, not intractable Problem Insomnia G47.00 Active Problem Anxiety F41.9 Active Medications Medication Code Code Instructions Start End Date Status Dosage System Date Levothyroxine [facility] 07859-21 75 MCG orally on Active 1 tablet Sodium 05-10 empty stomach qd Results No Known Results Summary Purpose eClinicalWorks Submission
--- OUTSIDE RECORDS SUMMARY | 2018-05-03 15:00 | XMS REPORT ---
:1985 Author Organization eClinicalWorks Care Team Providers Name Role Phone Vicki Sanchez Provider Role Unavailable Encounters Encounter Location Date Unknown [facility] February 04, 2016 results [facility] Apr 19, 2015 Unknown [facility] Apr 16, 2015 PHYSICAL/FBW [facility] January Problems Problem Type Condition ICD-9 Code Onset Dates Condition Status Problem Anxiety F41.9 Active Problem Acquired hypothyroidism E03.9 Active Problem Insomnia G47.00 Active Problem Migraine with aura and without G43.109 Active status migrainosus, not intractable Medications Medication Code System Code Instructions Start End Status Dosage Date Date Levothyroxine MEDISPAN 20941-88 75 MCG Orally Active take one Sodium 55-00 once daily on (1) empty stomach tablet(s) by mouth daily. Social History Social History Element Qualifiers Date Reported Last Bone Density: . never February 03, 2016 Last Colonoscopy: . 2009 February 03, 2016 Ethnicity . Status , Is croatian February 03, 2016 your primary language? Yes Where or with whom do you live ? . with self February 03, 2016 Flu Vaccine: . 2014 February 03, 2016 children . None February 03, 2016 Tobacco Use: . Are you a: never smoker February 03, 2016 Use of recreational / street drugs? . Answer: No February 03, 2016 Marital Status: . February 03, 2016 Do you drink alcohol? . Status: Yes, Type: Beer, How February 03, 2016 often? Rarely, How much? Rarely Occupation: employed. [employer] February 03, 2016 Summary Purpose eClinicalWorks Submission
--- OUTSIDE RECORDS SUMMARY | 2018-05-03 15:00 | XMS REPORT ---
:1985 Author Organization eClinicalWorks Care Team Providers Name Role Phone Vicki Sanchez Provider Role Unavailable Encounters Encounter Location Date Unknown [facility] and February 04, 2016 [facility] MEDICATION [facility] and February 03, 2016 [facility] Needs call back from Medical Staff [facility] and February 24, 2016 [facility] Unknown [facility] and March 10, 2016 [facility] results [facility] and Apr 19, 2015 [facility] Unknown [facility] and Apr 16, 2015 [facility] PHYSICAL/FBW [facility] and January 05, 2016 [facility] Problems Problem Type Condition ICD-9 Code Onset Dates Condition Status Problem Anxiety F41.9 Active Problem Acquired hypothyroidism E03.9 Active Problem Insomnia G47.00 Active Problem Migraine with aura and without G43.109 Active status migrainosus, not intractable Medications Medication Code System Code Instructions Start Date End Date Status Dosage Nadolol MEDISPAN [address] 40 mg Orally Once January 04, Active 1 tablet -01 a day 2015 Social History Social History Element Qualifiers Date Reported Last Bone Density: . never February 03, 2016 Last Colonoscopy: . 2009 February 03, 2016 Ethnicity . Status , Is yi February 03, 2016 your primary language? Yes [...]
--- OUTSIDE RECORDS SUMMARY | 2018-05-03 15:00 | XMS REPORT ---
:1985 Author Organization eClinicalWorks Care Team Providers Name Role Phone Kaylynn Brewer Provider Role Unavailable Allergies, Adverse Reactions, Alerts Substance Reaction Event Type Cymbalta Info Not Available Drug Allergy Ambien Info Not Available Drug Allergy Encounters Encounter Location Date Unknown [facility] and February 04, 2016 [facility] MEDICATION [facility] and February 03, 2016 [facility] Needs call back from Medical Staff [facility] and February 24, 2016 [facility] Unknown [facility] and March 10, 2016 [facility] results [facility] and Apr 19, 2015 [facility] Unknown [facility] and Apr 16, 2015 [facility] PHYSICAL/FBW [facility] and January 05, 2016 [facility] Having heart palpitations [facility] and May 04, 2016 [facility] Thyroid check [facility] and March 29, 2016 [facility] Unknown [facility] and Apr 05, 2016 [facility] Problems Problem Type Condition ICD-9 Code Onset Dates Condition Status Assessment SOB (shortness of breath) R06.02 Active Assessment Chest pain R07.9 Active Problem ADHD (attention deficit F90.9 Active hyperactivity disorder) Problem Insomnia G47.00 Active Problem Carpal tunnel syndrome G56.00 Active Problem Migraine with aura and without G43.109 Active status migrainosus, not intractable Assessment Palpitations R00.2 Active Problem Anxiety F41.9 Active Problem Acquired hypothyroidism E03.9 Active Medications Medication Code System Code Instructions Start End Status Dosage Date Date Levothyroxine MEDISPAN 51247-87 75 MCG Orally Active take one Sodium 05-01 once daily on (1) empty stomach tablet(s) by mouth daily. Effexor XR MEDISPAN 89557-61 150 MG Orally February 23, Active 1 capsule 36-02 Once a day 2015 with food Silenor MEDISPAN 01311-87 6 MG Orally Once February 02, Active 1 tablet 06-03 a day 2015 at bedtime Strattera MEDISPAN 12601-88 40 mg Orally for March 29, Active 1 capsule -30 first week, 2015 increase to twice a day afterwards Nadolol MEDISPAN 06913-01 40 mg Orally January 04, Active 1 tablet 36-01 Once a day 2015 Augmentin MEDISPAN 83311-45 875-125 MG May 04May Active 1 tablet 88-14 Orally every 12 2015 08, hrs 2016 ProAir HFA MEDISPAN 67023-92 108 (90 Base) May 04, Active 2 puffs as 51-85 MCG/ACT 2015 needed Inhalation every 4 hrs, prn Social History Social History Element Qualifiers Date Reported Last Bone Density: . never May 04, 2016 Last Colonoscopy: . 2009 May 04, 2016 Ethnicity . Status , Is arabic May 04, 2016 your primary language? Yes Where or with whom do you live ? . with self May 04, 2016 Flu Vaccine: . 2013May 04, 2016 children . None May 04, 2016 Tobacco Use: . Are you a: never smoker May 04, 2016 Use of recreational / street drugs? . Answer: No May 04, 2016 Marital Status: . May 04, 2016 Do you drink alcohol? . Status: Yes, Type: Beer, How May 04, 2016 often? Rarely, How much? 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
--- OUTSIDE RECORDS SUMMARY | 2018-05-03 15:00 | XMS REPORT ---
:1985 Author Organization [facility] Care Team Providers Name Role Phone Jaja Brewer Provider Role Unavailable Encounters Encounter Location Date Unknown [facility] and February 04, 2016 [facility] MEDICATION [facility] and February 03, 2016 [facility] Needs call back from Medical Staff [facility] and February 24, 2016 [facility] Unknown [facility] and March 10, 2016 [facility] results [facility] and Apr 19, 2015 [facility] [place]/JAJA-HM ATHLETIC SCOUT [facility] and May 18, 2016 [facility] Unknown [facility] and Apr 16, 2015 [facility] PHYSICAL/FBW [facility] and January 05, 2016 [facility] Having heart palpitations [facility] and May 04, 2016 [facility] Thyroid check [facility] and March 29, 2016 [facility] Unknown [facility] and Apr 05, 2016 [facility] Problems Problem Type Condition ICD-9 Code Onset Dates Condition Status Problem ADHD (attention deficit F90.9 Active hyperactivity disorder) Problem Insomnia G47.00 Active Problem Carpal tunnel syndrome G56.00 Active Problem Migraine with aura and without G43.109 Active status migrainosus, not intractable Assessment Palpitations R00.2 Active Problem Anxiety F41.9 Active Problem Acquired hypothyroidism E03.9 Active Medications Medication Code System Code Instructions Start End Status Dosage Date Date Levothyroxine MEDISPAN 21824-39 75 MCG Orally Active take one Sodium 05-01 once daily on (1) empty stomach tablet(s) by mouth daily. Strattera MEDISPAN 73058-67 40 mg Orally for March 29, Active 1 capsule - first week, 2015 increase to twice a day afterwards Effexor XR MEDISPAN 27697-44 150 MG Orally February 23, Active 1 capsule 36-02 Once a day 2015 with food ProAir HFA MEDISPAN 14525-19 108 (90 Base) May 04, Active 2 puffs as 51-85 MCG/ACT 2016 needed Inhalation every 4 hrs, prn Nadolol MEDISPAN 81962-32 40 mg Orally January 04, Active 1 tablet 36-01 Once a day 2015 Silenor MEDISPAN 24036-46 6 MG Orally Once February 02, Active 1 tablet 06-03 a day 2015 at bedtime Social History Social History Element Qualifiers Date Reported Last Bone Density: . never May 04, 2016 Last Colonoscopy: . 2008May 04, 2016 Ethnicity . Status , Is greenlandic May 04, 2016 your primary language? Yes [...] often? Rarely, How much? Rarely Occupation: employed. [employer] May 04, 2016 Summary Purpose eClinicalWorks Submission
--- OUTSIDE RECORDS SUMMARY | 2018-05-03 15:00 | XMS REPORT ---
:1985 [facility] Team Providers Name Role Phone Kaylynn Brewer Provider Role Unavailable Allergies, Adverse Reactions, Alerts Substance Reaction Event Type Cymbalta Info Not Available Drug Allergy Ambien Info Not Available Drug Allergy Encounters Encounter Location Date Unknown [facility] and February 04, 2016 [facility] MEDICATION [facility] and February 03, 2016 [facility] Needs call back from Medical Staff [facility] and February 24, 2016 [facility] Unknown [facility] and March 10, 2016 [facility] results [facility] and Apr 19, 2015 [facility] Unknown [facility] and Apr 16, 2015 [facility] PHYSICAL/FBW [facility] and January 05, 2016 [facility] Thyroid check [facility] and March 29, 2016 [facility] Problems Problem Type Condition ICD-9 Code Onset Dates Condition Status Assessment Carpal tunnel syndrome G56.00 Active Assessment ADHD (attention deficit F90.9 Active hyperactivity disorder) Problem ADHD (attention deficit F90.9 Active hyperactivity disorder) Problem Insomnia G47.00 Active Problem Carpal tunnel syndrome G56.00 Active Problem Migraine with aura and without G43.109 Active status migrainosus, not intractable Assessment Acquired hypothyroidism E03.9 Active Problem Anxiety F41.9 Active Problem Acquired hypothyroidism E03.9 Active Medications Medication Code System Code Instructions Start End Status Dosage Date Date Strattera MEDISPAN 14360-50 40 mg Orally for March 29, Active 1 capsule - first week, 2015 increase to twice a day afterwards Levothyroxine MEDISPAN 71688-43 75 MCG Orally Active take one Sodium 05-01 once daily on (1) empty stomach tablet(s) by mouth daily. Silenor MEDISPAN 87918-61 6 MG Orally Once February 02, Active 1 tablet 06-03 a day 2015 at bedtime Effexor XR MEDISPAN 75753-56 150 MG Orally February 23, Active 1 capsule 36-02 Once a day 2015 with food Nadolol MEDISPAN 25522-34 40 mg Orally January 04, Active 1 tablet 36-01 Once a day 2015 Social History Social History Element Qualifiers Date Reported Last Bone Density: . never March 29, 2016 Last Colonoscopy: . 2009 March 29, 2016 Ethnicity . Status , Is nauruan March 29, 2016 your primary language? Yes Where or with whom do you live ? . with self March 29, 2016 Flu Vaccine: . 2014 March 29, 2016 children . None March 29, 2016 Tobacco Use: . Are you a: never smoker March 29, 2016 Use of recreational / street drugs? . Answer: No March 29, 2016 Marital Status: . March 29, 2016 Do you drink alcohol? . Status: Yes, Type: Beer, How March 29, 2016 often? Rarely, How much? 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 Family history Qualifier Description Comment Date Reported Maternal Grandmother Comment not available March 29, 2016 Paternal Grandmother Comment not available March 29, 2016 Siblings alive Comment not available March 29, 2016 Maternal Grandfather Comment not available March 29, 2016 Children Comment not available March 29, 2016 Father lung cancer, CVA March 29, 2016 Paternal Grandfather Comment not available March 29, 2016 Mother alive diabetes March 29, 2016 Other: Comment not available March 29, 2016 Vital Signs Date/Time: March 29, 2016 Weight 143 lbs Height 64 in Cardiac Monitoring Heart Rate 74 /min Blood Pressure Diastolic 70 mm Hg Blood Pressure Systolic 110 mm Hg Results TSH+Free T4 Summary Purpose eClinicalWorks Submission
--- OUTSIDE RECORDS SUMMARY | 2018-05-03 15:00 | XMS REPORT ---
:1985 Author [facility] Care Team Providers Name Role Phone Fouzia Rutledge Provider Role Unavailable Allergies, Adverse Reactions, Alerts Substance Reaction Event Type Ambien Info Not Available Drug Allergy Encounters Encounter Location Date results [facility] Apr 19, 2015 Unknown [facility] Apr 16, 2015 Problems Problem Type Condition ICD-9 Code Onset Dates Condition Status Assessment Thrombocytosis 238.71 Active Problem Anxiety 300.00 Active Assessment Encounter to discuss test V65.49 Active results Problem Hypothyroid 244.9 Active Assessment Hypercalcemia 275.42 Active Assessment 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 Lexapro MEDISPAN 72628-30 20 mg Orally Apr 06, Active 1 tablet 20-01 Once a day 2014 Social History Social History Element Qualifiers Date Reported Last Bone Density: . never Apr 19, 2015 Last Colonoscopy: . 2008Apr 19, 2015 Ethnicity . Status , Is syriac Apr 19, 2015 your primary language? Yes Where or with whom do you live ? . with self Apr 19, 2015 Flu Vaccine: . 2013Apr 19, 2015 children . None Apr 19, 2015 Tobacco Use: . Are you a: never smoker Apr 19, 2015 Use of recreational / street drugs? . Answer: No Apr 19, 2015 Marital Status: . Apr 19, 2015 Do you drink alcohol? . Status: Yes, Type: Beer, How Apr 19, 2015 often? Rarely, How much? 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67 eGFR If NonAfricn Am(- >59 mL/min/1.73) 119 Calcium+Calcium, Ionized Calcium, Ionized, Serum(-4.5-5.6 mg/dL) 5.1 Summary Purpose eClinicalWorks Submission
--- OUTSIDE RECORDS SUMMARY | 2018-05-03 15:00 | XMS REPORT ---
:1985 Author Organization eClinicalWorks Care Team Providers Name Role Phone Fouzia Rutledge Provider Role Unavailable Encounters Encounter Location Date results [facility] Apr 19, 2015 Unknown [facility] Apr 16, 2015 Problems Problem Type Condition ICD-9 Code Onset Dates Condition Status Problem Anxiety 300.00 Active Problem Hypothyroid 244.9 Active Social History Social History Element Qualifiers Date Reported Last Bone Density: . never Apr 19, 2015 Last Colonoscopy: . 2008Apr 19, 2015 Ethnicity . Status , Is kenyan Apr 19, 2015 your primary language? Yes [...] often? Rarely, How much? Rarely Occupation: employed. [employer] Apr 19, 2015 Summary Purpose eClinicalWorks Submission
--- OUTSIDE RECORDS SUMMARY | 2018-05-03 15:00 | XMS REPORT ---
:1985 [facility] Team Providers Name Role Phone Jessica Brand Provider Role Unavailable Allergies, Adverse Reactions, Alerts Substance Reaction Event Type Cymbalta Info Not Available Drug Allergy Ambien Info Not Available Drug Allergy Encounters Encounter Location Date results [facility] Apr 19, 2015 Unknown [facility] Apr 16, 2015 PHYSICAL/FBW [facility] January Problems Problem Type Condition ICD-9 Code Onset Dates Condition Status Problem Acquired hypothyroidism E03.9 Active Problem Migraine with aura and without G43.109 Active status migrainosus, not intractable Problem Anxiety F41.9 Active Assessment Migraine with aura and without G43.109 Active status migrainosus, not intractable Assessment Routine general medical Z00.00 Active examination at a health care facility Assessment Anxiety F41.9 Active Medications Medication Code System Code Instructions Start End Status Dosage Date Date Lexapro MEDISPAN 80487-4 20 mg Orally Apr 06, Inactive 1 tablet 020-01 Once a day 2014 Levothyroxine MEDISPAN 23432-2 50 MCG by mouth Active take one Sodium 354-00 once daily on (1) empty stomach tablet(s) by mouth daily. Effexor XR MEDISPAN 34249-1 75 mg Orally January 04, Active 1 capsule 833-02 Once a day 2015 with food Nadolol MEDISPAN 00096-5 40 mg Orally January 04, Active 1 tablet 236-01 Once a day 2015 Social History Social History Element Qualifiers Date Reported Last Bone Density: . never January 05, 2016 Last Colonoscopy: . 2008January 05, 2016 Ethnicity . Status , Is faroese January 05, 2016 your primary language? Yes Where or with whom do you live ? . with self January 05, 2016 Flu Vaccine: . 2013January 05, 2016 children . None January 05, 2016 Tobacco Use: . Are you a: never smoker January 05, 2016 Use of recreational / street drugs? . Answer: No January 05, 2016 Marital Status: . January 05, 2016 Do you drink alcohol? . Status: Yes, Type: Beer, How January 05, 2016 often? Rarely, How much? 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 Family history Qualifier Description Comment Date Reported Maternal Grandmother Comment not available January 05, 2016 Paternal Grandmother Comment not available January 05, 2016 Siblings alive Comment not available January 05, 2016 Maternal Grandfather Comment not available January 05, 2016 Children Comment not available January 05, 2016 Father lung cancer, CVA January 05, 2016 Paternal Grandfather Comment not available January 05, 2016 Mother alive diabetes January 05, 2016 Other: Comment not available January 05, 2016 Vital Signs Date/Time: January 05, 2016 Weight 149 lbs Height 64 in Cardiac Monitoring Heart Rate 80 /min Blood Pressure Diastolic 60 mm Hg Blood Pressure Systolic 120 mm Hg Summary Purpose eClinicalWorks Submission
--- OUTSIDE RECORDS SUMMARY | 2018-05-03 15:00 | XMS REPORT ---
:1985 [facility] Team Providers Name Role Phone Kaylynn Brewer Provider Role Unavailable Allergies, Adverse Reactions, Alerts Substance Reaction Event Type Cymbalta Info Not Available Drug Allergy Ambien Info Not Available Drug Allergy Encounters Encounter Location Date Unknown [facility] February 04, 2016 MEDICATION [facility] February results [facility] Apr 19, 2015 Unknown [facility] Apr 16, 2015 PHYSICAL/FBW [facility] January Problems Problem Type Condition ICD-9 Code Onset Dates Condition Status Problem Anxiety F41.9 Active Problem Acquired hypothyroidism E03.9 Active Problem Insomnia G47.00 Active Assessment Anxiety F41.9 Active Assessment Insomnia G47.00 Active Problem Migraine with aura and without G43.109 Active status migrainosus, not intractable Assessment Migraine with aura and without G43.109 Active status migrainosus, not intractable Medications Medication Code System Code Instructions Start End Status Dosage Date Date Levothyroxine MEDISPAN 25728-78 50 MCG by mouth Active take one Sodium 54-00 once daily on (1) empty stomach tablet(s) by mouth daily. Nadolol MEDISPAN 99305-63 40 mg Orally January 04, Active 1 tablet 36-01 Once a day 2015 Effexor XR MEDISPAN 00749-35 75 mg Orally January 04, Active 1 capsule 33-02 Once a day 2015 with food Silenor MEDISPAN 36658-05 6 MG Orally Once February 02, Active 1 tablet 06-03 a day 2015 at bedtime Social History Social History Element Qualifiers Date Reported Last Bone Density: . never February 03, 2016 Last Colonoscopy: . 2009 February 03, 2016 Ethnicity . Status , Is nigerian February 03, 2016 your primary language? Yes Where or with whom do you live ? . with self February 03, 2016 Flu Vaccine: . 2013February 03, 2016 children . None February 03, 2016 Tobacco Use: . Are you a: never smoker February 03, 2016 Use of recreational / street drugs? . Answer: No February 03, 2016 Marital Status: . February 03, 2016 Do you drink alcohol? . Status: Yes, Type: Beer, How February 03, 2016 often? Rarely, How much? Rarely Occupation: employed. [employer] February 03, 2016 Vital Signs Date/Time: February 03, 2016 Weight 141 lbs Height 64 in Cardiac Monitoring Heart Rate 68 /min Blood Pressure Diastolic 72 mm Hg Blood Pressure Systolic 116 mm Hg Summary Purpose eClinicalWorks Submission
--- OUTSIDE RECORDS SUMMARY | 2018-05-03 15:00 | XMS REPORT ---
:1985 Author Organization eClinicalWorks Care Team Providers Name Role Phone Vicki Sanchez Provider Role Unavailable Encounters Encounter Location Date Unknown [facility] and February 04, 2016 [facility] MEDICATION [facility] and February 03, 2016 [facility] Needs call back from Medical Staff [facility] and February 24, 2016 [facility] Unknown [facility] and March 10, 2016 [facility] results [facility] and Apr 19, 2015 [facility] Unknown [facility] and Apr 16, 2015 [facility] PHYSICAL/FBW [facility] and January 05, 2016 [facility] Thyroid check [facility] and March 29, 2016 [facility] Unknown [facility] and Apr 05, 2016 [facility] Problems Problem Type Condition ICD-9 Code Onset Dates Condition Status Problem ADHD (attention deficit F90.9 Active hyperactivity disorder) Problem Insomnia G47.00 Active Problem Carpal tunnel syndrome G56.00 Active Problem Migraine with aura and without G43.109 Active status migrainosus, not intractable Problem Anxiety F41.9 Active Problem Acquired hypothyroidism E03.9 Active Medications Medication Code System Code Instructions Start Date End Date Status Dosage Effexor XR MEDISPAN 88924-893 150 MG Orally February 23 1 capsule 6-02 Once a day 2015 with food Social History Social History Element Qualifiers Date Reported Last Bone Density: . never March 29, 2016 Last Colonoscopy: . 2009 March 29, 2016 Ethnicity . Status , Is kosovan March 29, 2016 your primary language? 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
--- OUTSIDE RECORDS SUMMARY | 2018-05-03 15:00 | XMS REPORT ---
:1985 Author Organization eClinicalWorks Care Team Providers Name Role Phone Kaylynn Brewer Provider Role Unavailable Encounters Encounter Location Date Unknown [facility] and February 04, 2016 [facility] MEDICATION [facility] and February 03, 2016 [facility] Needs call back from Medical Staff [facility] and February 24, 2016 [facility] [...] Medication Code System Code Instructions Start End Date Status Dosage Date Effexor XR MEDISPAN 14348-857 75 mg Orally January 04, Inactive 1 capsule 3-02 Once a day 2015 with food Effexor XR MEDISPAN 79148-868 150 MG Orally February 23, Active 1 capsule 6-02 Once a day 2015 with food Social History Social History Element Qualifiers Date Reported Last Bone Density: . never February 03, 2016 Last Colonoscopy: . 2009 February 03, 2016 Ethnicity . Status , Is gambian February 03, 2016 your primary language? Yes [...]
--- OUTSIDE RECORDS SUMMARY | 2018-05-03 15:00 | XMS REPORT ---
:1985 Author Organization eClinicalWorks Care Team Providers Name Role Phone Kaylynn Brewer Provider Role Unavailable Allergies No Known Allergies Problems Problem Type Condition Code Onset Dates Condition Status Problem Migraine with aura and without G43.109 Active status migrainosus, not intractable Assessment Need for tuberculosis vaccination Z23 Active Problem Seizures R56.9 Active Problem Carpal tunnel syndrome G56.00 Active Problem Acute cystitis with hematuria N30.01 Active Problem Anxiety F41.9 Active Problem Acquired hypothyroidism E03.9 Active Problem ADHD (attention deficit F90.9 Active hyperactivity disorder) Problem Insomnia G47.00 Active Medications Medication Code Code Instructions Start End Status Dosage System Date Date BuSpar NDC 0 10 MG Orally Active 1 tablet Twice a day Lamictal [facility] [address]-27 100 MG Orally Active 1 Twice a day Nadolol [facility] 84953577678 40 mg Orally Active 1 tablet Once a day Levothyroxine [facility] [address]-19 75 MCG orally Active 1 tablet Sodium on empty stomach qd Results No Known Results Summary Purpose eClinicalWorks Submission
--- OUTSIDE RECORDS SUMMARY | 2018-05-03 15:00 | XMS REPORT ---
:1985 Author Organization eClinicalWorks Care Team Providers Name Role Phone Mireille Lester Provider Role Unavailable Encounters Encounter Location Date Unknown [facility] and February 04, 2016 [facility] MEDICATION [facility] and February 03, 2016 [facility] Needs call back from Medical Staff [facility] and February 24, 2016 [facility] Unknown [facility] and March 10, 2016 [facility] results [facility] and Apr 19, 2015 [facility] [place] [employer] [facility] and May 18, 2016 [facility] Unknown [facility] and Apr 16, 2015 [facility] [place] [place] [facility] and May 19, 2016 [facility] PHYSICAL/FBW [facility] and January 05, 2016 [facility] Having heart palpitations [facility] and May 04, 2016 [facility] Thyroid check [facility] and March 29, 2016 [facility] Unknown [facility] and Apr 05, 2016 [facility] [...] Instructions Start End Status Dosage Date Date Nadolol MEDISPAN 74488-20 40 mg Orally January 04, Active 1 tablet 36-01 Once a day 2015 Effexor XR MEDISPAN 45201-47 150 MG Orally February 23, Active 1 capsule 36-02 Once a day 2015 with food Silenor MEDISPAN 44188-07 6 MG Orally Once February 02, Active 1 tablet 06-03 a day 2016 at bedtime Strattera MEDISPAN 36428-86 40 mg Orally for March 29, Active 1 capsule -30 first week, 2015 increase to twice a day afterwards ProAir HFA MEDISPAN 48994-96 108 (90 Base) May 04, Active 2 puffs as 51-85 MCG/ACT 2015 needed Inhalation every 4 hrs, prn Levothyroxine MEDISPAN 11478-84 75 MCG Orally Active take one Sodium 05-01 once daily on (1) empty stomach tablet(s) by mouth daily. Social History Social History Element Qualifiers Date Reported Last Bone Density: . never May 04, 2016 Last Colonoscopy: . 2008May 04, 2016 Ethnicity . Status , Is setswana May 04, 2016 your primary language? Yes [...] May 04, 2016 Vital Signs Date/Time: May 19, 2016 Weight 145 lbs Height 64 in Cardiac Monitoring Heart Rate 65 /min Blood Pressure Diastolic 67 mm Hg Blood Pressure Systolic 110 mm Hg Summary Purpose eClinicalWorks Submission
--- OUTSIDE RECORDS SUMMARY | 2018-05-03 15:01 | XMS REPORT ---
:1985 Author Organization eClinicalWorks Care Team Providers Name Role Phone Vicki Sanchez Provider Role Unavailable Encounters Encounter Location Date Unknown [facility] and February 04, 2016 [facility] MEDICATION [facility] and February 03, 2016 [facility] Needs call back from Medical Staff [facility] and February 24, 2016 [facility] Unknown [facility] and March 10, 2016 [facility] results [facility] and Apr 19, 2015 [facility] Unknown [facility] and Apr 16, 2015 [facility] PHYSICAL/FBW [facility] and January 05, 2016 [facility] Having heart palpitations [facility] and May 04, 2016 [facility] Thyroid check [facility] and March 29, 2016 [facility] Unknown [facility] and Apr 05, 2016 [facility] Unknown [facility] and Jun 06, 2016 [facility] [place] [employer] [facility] and May 18, 2016 [facility] [place] [facility] and May 19, 2016 [facility] Problems Problem Type Condition ICD-9 Code Onset Dates Condition Status Problem ADHD (attention deficit F90.9 Active hyperactivity disorder) Problem Insomnia G47.00 Active Problem Carpal tunnel syndrome G56.00 Active Problem Migraine with aura and without G43.109 Active status migrainosus, not intractable Problem Anxiety F41.9 Active Problem Acquired hypothyroidism E03.9 Active Social History Social History Element Qualifiers Date Reported Last Bone Density: . never Jun 08, 2016 Last Colonoscopy: . 2008Jun 08, 2016 Ethnicity . Status , Is icelandic Jun 08, 2016 your primary language? Yes Where or with whom do you live ? . with self Jun 08, 2016 Flu Vaccine: . 2013Jun 08, 2016 children . None Jun 08, 2016 Tobacco Use: . Are you a: never smoker Jun 08, 2016 Use of recreational / street drugs? . Answer: No Jun 08, 2016 Marital Status: . Jun 08, 2016 Do you drink alcohol? . Status: Yes, Type: Beer, How Jun 08, 2016 often? Rarely, How much? 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
--- OUTSIDE RECORDS SUMMARY | 2018-05-03 15:01 | XMS REPORT ---
:1985 Author Organization eClinicalWorks Care Team Providers Name Role Phone Mike Camargo Vicki Provider Role Unavailable Allergies No Known Allergies Problems Problem Type Condition Code Onset Dates Condition Status Problem Carpal tunnel syndrome G56.00 Active Problem ADHD (attention deficit F90.9 Active hyperactivity disorder) Problem Seizures R56.9 Active Problem Acquired hypothyroidism E03.9 Active Problem Migraine with aura and without G43.109 Active status migrainosus, not intractable Problem Insomnia G47.00 Active Problem Anxiety F41.9 Active Medications No Known Medications Results No Known Results Summary Purpose eClinicalWorks Submission
--- OUTSIDE RECORDS SUMMARY | 2018-05-03 15:01 | XMS REPORT ---
:1985 [facility] Care Team Providers Name Role Phone Jaja Brewer Provider Role Unavailable Allergies, Adverse Reactions, Alerts Substance Reaction Event Type Cymbalta Info Not Available Drug Allergy Ambien Info Not Available Drug Allergy Encounters Encounter Location Date Unknown [facility] and February 04, 2016 [facility] MEDICATION [facility] and February 03, 2016 [facility] Needs call back from Medical Staff [facility] and February 24, 2016 [facility] Unknown [facility] and March 10, 2016 [facility] results [facility] and Apr 19, 2015 [facility] Unknown [facility] and Apr 16, 2015 [facility] PHYSICAL/FBW [facility] and January 05, 2016 [facility] Having heart palpitations [facility] and May 04, 2016 [facility] Thyroid check [facility] and March 29, 2016 [facility] Unknown [facility] and Apr 05, 2016 [facility] Unknown [facility] and Jun 14, 2016 [facility] cough, runny nose [facility] and Oct 18, 2016 [facility] Unknown [facility] and Jun 06, 2016 [facility] yeast infection [facility] and Jun 08, 2016 [facility] [place] [employer] [facility] and May 18, 2016 [facility] [place] [facility] and May 19, 2016 [facility] Problems Problem Type Condition ICD-9 Code Onset Dates Condition Status Assessment Acute non-recurrent maxillary J01.00 Active sinusitis Problem Carpal tunnel syndrome G56.00 Active Problem ADHD (attention deficit F90.9 Active hyperactivity disorder) Problem Seizures R56.9 Active Problem Acquired hypothyroidism E03.9 Active Problem Migraine with aura and without G43.109 Active status migrainosus, not intractable Problem Insomnia G47.00 Active Problem Anxiety F41.9 Active Medications Medication Code System Code Instructions Start End Status Dosage Date Date BuSpar Unknown 0 10 MG Orally Active 1 tablet Twice a day Levothyroxine [facility] [address]-92 75 MCG Orally Active take one Sodium once daily on (1) empty stomach tablet(s) by mouth daily. Effexor XR [facility] [address]-47 150 MG Orally February Active 1 capsule Once a day , with food 2015 2015 Lamictal [facility] [address]-40 100 MG Orally Active 2 tablets Twice a day Zithromax Z-Jose [facility] [address]-43 250 MG Orally Oct 18Oct Active 2 tablets Once a day 2016 20, on the 2016 first day, then 1 tablet daily for 4 days Silenor [facility] [address]-37 6 MG Orally February Active 1 tablet Once a day 02, at 2015 bedtime Nadolol [facility] 47261116134 40 mg Orally Active 1 tablet Once a day ProAir HFA [facility] [address]-11 108 (90 Base) Sept Jun Active 2 puffs MCG/ACT , as needed Inhalation 2015 2015 every 4 hrs, prn Bromfed DM [facility] [address]-61 30-2-10 MG/5ML Oct 18Oct Active 10 ml as Orally every 2016 25, needed hrs 2017 Social History Social History Element Qualifiers Date Reported Last Bone Density: . never Oct 18, 2016 Last Colonoscopy: . 2008Oct 18, 2016 Ethnicity . Status , Is prydeinig Oct 18, 2016 your primary language? Yes Where or with whom do you live ? . with self Oct 18, 2016 Flu Vaccine: . 2013Oct 18, 2016 children . None Oct 18, 2016 Tobacco Use: . Are you a: never smoker Oct 18, 2016 Use of recreational / street drugs? . Answer: No Oct 18, 2016 Marital Status: . Oct 18, 2016 Do you drink alcohol? . Status: Yes, Type: Beer, How Oct 18, 2016 often? Rarely, How much? 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 Family history Qualifier Description Comment Date Reported Maternal Grandmother Comment not available Oct 18, 2016 Paternal Grandmother Comment not available Oct 18, 2016 Siblings alive Comment not available Oct 18, 2016 Maternal Grandfather Comment not available Oct 18, 2016 Children Comment not available Oct 18, 2016 Father lung cancer, CVA Oct 18, 2016 Paternal Grandfather Comment not available Oct 18, 2016 Mother alive diabetes Oct 18, 2016 Other: Comment not available Oct 18, 2016 Vital Signs Date/Time: Oct 18, 2016 Weight 158 lbs Height 64 in Temperature 98.0 F Cardiac Monitoring Heart Rate 53 /min Blood Pressure Diastolic 70 mm Hg Blood Pressure Systolic 110 mm Hg Summary Purpose eClinicalWorks Submission
--- OUTSIDE RECORDS SUMMARY | 2018-05-03 15:01 | XMS REPORT ---
:1985 [facility] Care Team Providers Name Role Phone Jaja Brewer Provider Role Unavailable Allergies, Adverse Reactions, Alerts Substance Reaction Event Type Cymbalta Info Not Available Drug Allergy Ambien Info Not Available Drug Allergy Encounters Encounter Location Date Unknown [facility] and February 04, 2016 [facility] MEDICATION [facility] and February 03, 2016 [facility] Needs call back from Medical Staff [facility] and February 24, 2016 [facility] Unknown [facility] and March 10, 2016 [facility] results [facility] and Apr 19, 2015 [facility] Unknown [facility] and Apr 16, 2015 [facility] PHYSICAL/FBW [facility] and January 05, 2016 [facility] Having heart palpitations [facility] and May 04, 2016 [facility] Thyroid check [facility] and March 29, 2016 [facility] Unknown [facility] and Apr 05, 2016 [facility] Unknown [facility] and Jun 06, 2016 [facility] yeast infection [facility] and Jun 08, 2016 [facility] [place] [facility] and May 18, 2016 [facility] [place] [facility] and May 19, 2016 [facility] Problems Problem Type Condition ICD-9 Code Onset Dates Condition Status Assessment Acute cystitis with hematuria N30.01 Active Assessment Acute vaginitis N76.0 Active Assessment Dysuria R30.0 Active Problem ADHD (attention deficit F90.9 Active hyperactivity disorder) Problem Insomnia G47.00 Active Problem Carpal tunnel syndrome G56.00 Active Problem Migraine with aura and without G43.109 Active status migrainosus, not intractable Assessment Palpitations R00.2 Active Problem Anxiety F41.9 Active Problem Acquired hypothyroidism E03.9 Active Medications Medication Code System Code Instructions Start End Status Dosage Date Date Levothyroxine [facility] [address]-81 75 MCG Orally Active take one Sodium once daily on (1) empty stomach tablet(s) by mouth daily. Cipro [facility] [address]-36 500 MG Orally Jun 08Jun Active 1 tablet Twice a day [address] [facility] 63263069852 40 MG Inactive TAKE 1 CAPSULE BY MOUTH TWICE DAILY Nadolol [facility] [address]-68 40 mg Orally January 04, Active 1 tablet Once a day [address] [facility] [address]-03 108 (90 Base) Sept Active 2 puffs MCG/ACT , as needed Inhalation 2015 every 4 hrs, prn Effexor XR [facility] [address]-46 150 MG Orally February Active 1 capsule Once a day , with food 2015 Silenor [facility] [address]-77 6 MG Orally February Active 1 tablet Once a day , at 2015 bedtime Diflucan [facility] [address]-73 150 MG Orally Jun 08, Jun Active 1 tablet once, and 2016 05, in 72 2016 hours Social History Social History Element Qualifiers Date Reported Last Bone Density: . never Jun 08, 2016 Last Colonoscopy: . 2008Jun 08, 2016 Ethnicity . Status , Is latvian Jun 08, 2016 your primary language? Yes [...] Rarely, How much? Rarely Occupation: employed. [employer] Jun 08, 2016 Vital Signs Date/Time: Jun 08, 2016 Weight 144 lbs Height 64 in Cardiac Monitoring Heart Rate 72 /min Blood Pressure Diastolic 72 mm Hg Blood Pressure Systolic 115 mm Hg Results URINE AUTO W/O SCOPE Summary Purpose eClinicalWorks Submission
--- OUTSIDE RECORDS SUMMARY | 2018-05-03 15:01 | XMS REPORT ---
:1985 Author Organization [employer] Care Team Providers Name Role Phone Kaylynn Brewer Provider Role Unavailable Allergies, Adverse Reactions, Alerts Substance Reaction Event Type Cymbalta Info Not Available Drug Allergy Ambien Info Not Available Drug Allergy Problems Problem Type Condition Code Onset Dates Condition Status Assessment Follow up Z09 Active Assessment Seizures R56.9 Active Assessment Acquired hypothyroidism E03.9 Active Problem Carpal tunnel syndrome G56.00 Active Problem ADHD (attention deficit F90.9 Active hyperactivity disorder) Problem Seizures R56.9 Active Problem Acquired hypothyroidism E03.9 Active Problem Migraine with aura and without G43.109 Active status migrainosus, not intractable Problem Insomnia G47.00 Active Problem Anxiety F41.9 Active Medications Medication Code Code Instructions Start End Status Dosage System Date Date Levothyroxine [facility] [address]-07 75 MCG Active TAKE ONE Sodium (1) TABLET(S) BY MOUTH DAILY. ONCE DAILY ON EMPTY STOMACH ORALLY 90 DAYS Lamictal [facility] [address]-05 100 MG Orally Active 1 Twice a day Nadolol [facility] 42694204424 40 mg Orally Active 1 tablet Once a day BuSpar NDC 0 10 MG Orally Active 1 tablet Twice a day Silenor [facility] [address]-98 6 MG Orally February 02, Active 1 tablet Once a day 2016 at bedtime Vital Signs Date/Time: December 29, 2016 BMI 27.29 Index Weight 159 lbs Height 64 in Cardiac Monitoring Heart Rate 83 /min Blood Pressure Diastolic 74 mm Hg Blood Pressure Systolic 138 mm Hg Results No Known Results Summary Purpose eClinicalWorks Submission
--- OUTSIDE RECORDS SUMMARY | 2018-05-03 15:01 | XMS REPORT ---
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 never Jun 08, 2016 Last Colonoscopy: . 2008Jun 08, 2016 Ethnicity . Status , Is norwegian Jun 08, 2016 your primary language? Yes [...] Rarely, How much? Rarely Occupation: employed. [employer] Jun 08, 2016 Summary Purpose eClinicalWorks Submission
[2018-05-03] MEDS ORDERED: FENTANYL CITR 100 MCG/2 ML ONE ×2 (15:09→15:55)
[2018-05-03] MEDS ORDERED: ONDANSETRON 4 MG/2 ML VIAL ONE (15:09)
[2018-05-03] MEDS ORDERED: NA CHLORIDE 0.9% 250 ML ONE (15:09)
[2018-05-03] MEDS ORDERED: ETOMIDATE 20 MG/10 ML VIAL IV ONE (15:18)
[2018-05-03] MEDS ORDERED: MIDAZOLAM HCL 2 MG/2 ML INJ ONE (15:37)
--- NOTE | 2018-05-03 15:37 | RAD REPORT ---
EXAM DESCRIPTION: RAD - Shoulder Left 2 View - 05/03/2018 3:29 pm CLINICAL HISTORY: Left shoulder pain FINDINGS: An anterior dislocation involves the humeral head. No fracture is seen
--- NOTE | 2018-05-03 16:11 | ER ---
Nurse's Notes [facility] Name: Sarai Sanches Age: 32 yrs Sex: Female : 1985 Arrival Date: 05/03/2018 Time: 14:56 Bed 6 Private MD: Diagnosis: Recurrent dislocation, left shoulder Presentation: 05/03 14:54 Presenting complaint: Patient states: left shoulder dislocation after reaching for sv something on her truck. Transition of care: patient was not received from another setting of care. Onset of symptoms was May 03, 2018. Risk Assessment: Do you want to hurt yourself or someone else? Patient reports no desire to harm self or others. Initial Sepsis Screen: Does the patient meet any 2 criteria? No. Patient's initial sepsis screen is negative. Does the patient have a suspected source of infection? No. Patient's initial sepsis screen is negative. Care prior to arrival: None. 14:54 Method Of Arrival: Ambulatory sv 14:54 Acuity: MARTINA 2 sv Triage Assessment: 15:01 General: Appears in no apparent distress. uncomfortable, slender, well developed, sv Behavior is calm, cooperative, appropriate for age. Pain: Complains of pain in anterior aspect of left shoulder Is continuous. EENT: No signs and/or symptoms were reported regarding the EENT system. Neuro: Level of Consciousness is awake, alert, obeys commands, Oriented to person, place, time, situation, Gait is steady. Respiratory: Respiratory effort is even, unlabored, Respiratory pattern is regular, symmetrical. Derm: Skin is pink, warm \T\ dry. Musculoskeletal: 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: limited in left shoulder Bony deformity noted of left shoulder. 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 - Ebola Screening: : No symptoms or risks identified at this time. - Social history:: Smoking status: Patient/guardian denies using tobacco. Screenin:02 Abuse screen: Denies threats or abuse. Denies injuries from another. Nutritional sv screening: No deficits noted. Tuberculosis screening: No symptoms or risk factors identified. Fall Risk None identified. Assessment: 15:02 Reassessment: Patient appears in no apparent distress at this time. No changes from sv previously documented assessment. 15:59 Reassessment: Patient appears in no apparent distress at this time. Patient and/or sv family updated on plan of care and expected duration. Pain level reassessed. Patient is alert, oriented x 3, equal unlabored respirations, skin warm/dry/pink. 16:29 Reassessment: Patient appears in no apparent distress at this time. Patient and/or sv family updated on plan of care and expected duration. Pain level reassessed. Patient is alert, oriented x 3, equal unlabored respirations, skin warm/dry/pink. Patient states feeling better. Patient states symptoms have improved. Vital Signs: 15:00 BP 123 / 83; Pulse 57; Resp 16; Temp 97.6; Pulse Ox 100% ; Weight 66.22 kg; Height 5 sv ft. 4 in. (162.56 cm); 15:34 BP 123 / 92; Pulse 64; Resp 15; Pulse Ox 100% on 15% Non-rebreather mask; sv 15:41 BP 113 / 78; Pulse 62; Resp 19; Pulse Ox 100% on 15% Non-rebreather mask; sv 15:44 BP 116 / 78; Pulse 64; Resp 20; Pulse Ox 100% on 15% Non-rebreather mask; sv 15:47 BP 123 / 89; Pulse 64; Resp 22; Pulse Ox 100% on 15% Non-rebreather mask; sv 15:54 Pulse 64; Resp 21; Pulse Ox 100% on R/A; sv 16:27 BP 120 / 80; Pulse 64; Resp 16; Pulse Ox 99% ; sv 15:00 Body Mass Index 25.06 (66.22 kg, 162.56 cm) sv ED Course: 14:56 Patient arrived in ED. sv 14:56 Estrellita Lawton RN is Primary Nurse. sv 14:58 Triage completed. sv 14:59 [facility] hb 15:01 Arm band placed on right wrist. sv 15:02 Patient has correct armband on for positive identification. Bed in low position. Call sv light in reach. Adult w/ patient. Pulse ox on. NIBP on. Door closed. Warm blanket given. Head of bed elevated. 15:07 Leroy Nieves MD is Attending Physician. jr8 15:08 Inserted saline lock: 20 gauge in right antecubital area, using aseptic technique. sv Flushed right antecubital with 5 ml normal saline. 15:11 Consent for conscious sedation explained by staff, explained by physician, signed by sv spouse. 15:22 X-ray(s) taken. sv 15:29 XRAY Shoulder LEFT 2 view In Process Unspecified. EDMS 15:41 Assist provider with reduction of left shoulder using manipulation, Set up for sv procedure. Performed by Agapito QUIROGA Immobilized with shoulder immobilizer Patient tolerated well. 16:01 X-ray(s) taken. sv 16:03 XRAY Shoulder LEFT 2 view In Process Unspecified. EDMS 16:11 Gaston Del Real MD is Referral Physician. jr8 16:28 IV discontinued, intact, bleeding controlled, No redness/swelling at site. Pressure sv dressing applied. Administered Medications: 15:19 Drug: fentaNYL (PF) 50 mcg Route: IVP; Site: right antecubital; hb 15:24 Follow up: Response: No adverse reaction sv 15:19 Drug: NS 0.9% 1000 ml Route: IV; Rate: 125 ml/hr; Site: right antecubital; hb 16:30 Follow up: Response: No adverse reaction; IV Status: Completed infusion; IV Intake: sv 125ml 15:20 Drug: Zofran 4 mg Route: IVP; Site: right antecubital; hb 15:24 Follow up: Response: No adverse reaction sv 15:36 Drug: Versed 2 mg Route: IVP; Site: right antecubital; sv 15:58 Follow up: Response: No adverse reaction sv 15:37 Drug: Etomidate 12 mg Route: IVP; Site: right antecubital; sv 15:58 Follow up: Response: No adverse reaction sv 15:53 Drug: fentaNYL (PF) 25 mcg Route: IVP; Site: right antecubital; sv 16:00 Follow up: Response: No adverse reaction sv Intake: 16:30 IV: 125ml; Total: 125ml. sv Outcome: 16:11 Discharge ordered by MD. pedraza 16:30 Discharged to home via wheelchair, with significant other. sv 16:30 Condition: stable 16:30 Condition: improved 16:30 Discharge instructions given to patient, Instructed on discharge instructions, follow up and referral plans. medication usage, Demonstrated understanding of instructions, follow-up care, medications, Prescriptions given X 2. 16:32 Patient left the ED. hb Signatures: Dispatcher [employer] Estrellita Cuevas RN RN Agapito Galloway PA PA [email or web address] Joycelyn Rodriguez RN RN Corrections: (The following items were deleted from the chart) 16:00 15:01 Musculoskeletal: 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: limited in left shoulder sv sv 16:31 16:30 Discharge instructions given to patient, Instructed on discharge instructions, sv follow up and referral plans. medication usage, Demonstrated understanding of instructions, follow-up care, medications, sv
--- NOTE | 2018-05-03 16:11 | EDPHYS ---
Physician Documentation [facility] Name: Sarai Sanches Age: 32 yrs Sex: Female : 1985 Arrival Date: 05/03/2018 Time: 14:56 Bed 6 Private MD: ED Physician Leroy Nieves HPI: 05/03 15:02 This 32 yrs old Female presents to ER via Ambulatory with complaints of jr8 Shoulder Injury. 15:11 The patient or guardian complains of decreased range of motion, deformity, pain. left jr8 shoulder. Context: The problem was sustained at home, resulted from a fall, The patient experiences decreased range of motion, The patient notes a deformity, a deltoid step-off. Onset: The symptoms/episode began/occurred acutely, today. Modifying factors: the symptoms are alleviated by nothing. The symptoms are aggravated by movement. Associated signs and symptoms: The patient has no apparent associated signs or symptoms. Severity of symptoms: At their worst the symptoms were moderate, in the emergency department the symptoms are unchanged. The patient has experienced a previous episode. The patient has not recently seen a physician. Fell off of truck while washing it. Feels that her shoulder is dislocated. Has had this once before . 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 - Ebola Screening: : No symptoms or risks identified at this time. - Social history:: Smoking status: Patient/guardian denies using tobacco. ROS: 15:11 Eyes: Negative for injury, pain, redness, and discharge, ENT: Negative for injury, jr8 pain, and discharge, Neck: Negative for injury, pain, and swelling, Cardiovascular: Negative for chest pain, palpitations, and edema, Respiratory: Negative for shortness of breath, cough, wheezing, and pleuritic chest pain, Abdomen/GI: Negative for abdominal pain, nausea, vomiting, diarrhea, and constipation, Back: Negative for injury and pain, Skin: Negative for injury, rash, and discoloration, Neuro: Negative for headache, weakness, numbness, tingling, and seizure. 15:11 MS/extremity: Positive for decreased range of motion, deformity, pain, tenderness, of the left shoulder. Exam: 15:11 Eyes: Pupils equal round and reactive to light, extra-ocular motions intact. Lids and jr8 lashes normal. Conjunctiva and sclera are non-icteric and not injected. Cornea within normal limits. Periorbital areas with no swelling, redness, or edema. ENT: Nares patent. No nasal discharge, no septal abnormalities noted. Tympanic membranes are normal and external auditory canals are clear. Oropharynx with no redness, swelling, or masses, exudates, or evidence of obstruction, uvula midline. Mucous membranes moist. Neck: Trachea midline, no thyromegaly or masses palpated, and no cervical lymphadenopathy. Supple, full range of motion without nuchal rigidity, or vertebral point tenderness. No Meningismus. Cardiovascular: Regular rate and rhythm with a normal S1 and S2. No gallops, murmurs, or rubs. Normal PMI, no JVD. No pulse deficits. Respiratory: Lungs have equal breath sounds bilaterally, clear to auscultation and percussion. No rales, rhonchi or wheezes noted. No increased work of breathing, no retractions or nasal flaring. Abdomen/GI: Soft, non-tender, with normal bowel sounds. No distension or tympany. No guarding or rebound. No evidence of tenderness throughout. Back: No spinal tenderness. No costovertebral tenderness. Full range of motion. Skin: Warm, dry with normal turgor. Normal color with no rashes, no lesions, and no evidence of cellulitis. Neuro: Awake and alert, GCS 15, oriented to person, place, time, and situation. Cranial nerves II-XII grossly intact. Motor strength 5/5 in all extremities. Sensory grossly intact. Cerebellar exam normal. Normal gait. 15:11 Musculoskeletal/extremity: Extremities: grossly normal except: noted in the left shoulder: decreased ROM, deformity, pain, tenderness, deltoid step on present on left side , ROM: limited active range of motion, limited passive range of motion, Circulation is intact in all extremities. Sensation intact. Vital Signs: 15:00 BP 123 / 83; Pulse 57; Resp 16; Temp 97.6; Pulse Ox 100% ; Weight 66.22 kg; Height 5 sv ft. 4 in. (162.56 cm); 15:34 BP 123 / 92; Pulse 64; Resp 15; Pulse Ox 100% on 15% Non-rebreather mask; sv 15:41 BP 113 / 78; Pulse 62; Resp 19; Pulse Ox 100% on 15% Non-rebreather mask; sv 15:44 BP 116 / 78; Pulse 64; Resp 20; Pulse Ox 100% on 15% Non-rebreather mask; sv 15:47 BP 123 / 89; Pulse 64; Resp 22; Pulse Ox 100% on 15% Non-rebreather mask; sv 15:54 Pulse 64; Resp 21; Pulse Ox 100% on R/A; sv 16:27 BP 120 / 80; Pulse 64; Resp 16; Pulse Ox 99% ; sv 15:00 Body Mass Index 25.06 (66.22 kg, 162.56 cm) sv Procedures: 16:08 Splinting: Splint applied to left shoulder using sling, applied by myself. nurse. post jr8 reduction film - reveals normal alignment, Examined by me, post splint application: neurovascular intact, 2+ distal pulses palpable, brisk capillary refill noted, Patient tolerated well. Reduction: of the left shoulder, using traction, manipulation, Immobilized with sling, Patient tolerated well. Post reduction film - reveals normal alignment. Moderate sedation: Pre-procedure assessment: the patient has been NPO 5 hour(s) prior to arrival, ASA physical classification: II - mild/mod systemic disease that does not interfere with daily routines, Airway assessment: able to hyperextend neck, able to maintain airway, can open mouth without difficulty, Mallampati classification of tongue size: II - faucial pillars and soft palate can be visualized, but uvula is masked by the base of the tongue, Monitoring during procedure: patient monitor, continuous pulse oximetry, nurse at bedside at all times, Medications employed: Etomidate, 10 mg(s), Versed, 2 mg(s), Post-procedure assessment: the patient is deeply sedated, [place] sedation score: 6 - no response, Respiratory status: even and unlabored, a reversal agent was not used. MDM: 14:59 Patient medically screened. jr8 16:08 Differential diagnosis: Anterior dislocation with fracture, Anterior dislocation jr8 without fracture, Posterior dislocation with fracture, Posterior dislocation without fracture, humeral head fracture, glenoid fracture. Data reviewed: vital signs, nurses notes, lab test result(s), radiologic studies, plain films, and as a result, I will discharge patient. Data interpreted: Pulse oximetry: on room air is 100 %. Interpretation: normal. Counseling: I had a detailed discussion with the patient and/or guardian regarding: the historical points, exam findings, and any diagnostic results supporting the discharge/admit diagnosis, radiology results, the need for outpatient follow up, a orthopedic surgeon, to return to the emergency department if symptoms worsen or persist or if there are any questions or concerns that arise at home. Response to treatment: the patient's symptoms have markedly improved after treatment. 05/03 15:00 Order name: XRAY Shoulder LEFT 2 view; Complete Time: 15:48 [facility] 05/03 15:48 Order name: XRAY Shoulder LEFT 2 view; Complete Time: 16:17 [facility] 05/03 15:00 Order name: IV; Complete Time: 15:08 [facility] 05/03 15:00 Order name: Conscious Sedation; Complete Time: 15:11 [facility] 05/03 15:00 Order name: Splint; Complete Time: 15:58 [facility] Administered Medications: 15:19 Drug: fentaNYL (PF) 50 mcg Route: IVP; Site: right antecubital; hb 15:24 Follow up: Response: No adverse reaction sv 15:19 Drug: NS 0.9% 1000 ml Route: IV; Rate: 125 ml/hr; Site: right antecubital; hb 16:30 Follow up: Response: No adverse reaction; IV Status: Completed infusion; IV Intake: sv 125ml 15:20 Drug: Zofran 4 mg Route: IVP; Site: right antecubital; hb 15:24 Follow up: Response: No adverse reaction sv 15:36 Drug: Versed 2 mg Route: IVP; Site: right antecubital; sv 15:58 Follow up: Response: No adverse reaction sv 15:37 Drug: Etomidate 12 mg Route: IVP; Site: right antecubital; sv 15:58 Follow up: Response: No adverse reaction sv 15:53 Drug: fentaNYL (PF) 25 mcg Route: IVP; Site: right antecubital; sv 16:00 Follow up: Response: No adverse reaction sv Disposition: 05/03/18 16:11 Discharged to Home. Impression: Recurrent dislocation, left shoulder. - Condition is Stable. - Discharge Instructions: Shoulder Dislocation. - Prescriptions for Tylenol- Codeine #3 300-30 mg Oral Tablet - take 2 tablet by ORAL route every 6 hours As needed; 30 tablet. ondansetron 4 mg Oral tablet,disintegrating - place 1 tablet by TRANSLINGUAL route every 6 hours; 12 tablet. - Medication Reconciliation Form, Thank You Letter, Antibiotic Education, Prescription Opioid Use form. - Follow up: Gaston Del Real MD; When: 2 - 3 days; Reason: Recheck today's complaints, Continuance of care, Re-evaluation by your physician. - Problem is new. - Symptoms have improved. Critical care time excluding procedures: 16:12 Critical care time: Bedside Care: 20 minutes, Family Intervention: 10 minutes. Total 8 time: 30 minutes Addendum: 05/07/2018 07:46 Co-signature as Attending Physician, Leroy Nieves MD I agree with the assessment and c munoz plan of care. Signatures: Dispatcher [employer] Estrellita Cuevas, RN RN Leroy Carvalho MD MD cha Roszak, Josh, PA PA jr8 Joycelyn Rodriguez, YOVANA RN Corrections: (The following items were deleted from the chart) 05/03 16:32 16:11 05/03/2018 16:11 Discharged to Home. Impression: Recurrent dislocation, left hb shoulder. Condition is Stable. Forms are Medication Reconciliation Form, Thank You Letter, Antibiotic Education, Prescription Opioid Use. Follow up: Gaston Del Real; When: 2 - 3 days; Reason: Recheck today's complaints, Continuance of care, Re-evaluation by your physician. Problem is new. Symptoms have improved. jr8
--- NOTE | 2018-05-03 16:14 | RAD REPORT ---
EXAM DESCRIPTION: RAD - Shoulder Left 2 View - 05/03/2018 4:03 pm CLINICAL HISTORY: Shoulder pain. Shoulder dislocation FINDINGS: The previously described dislocation has been reduced. Hill-Sachs deformity is evident
== END 2018-05-03 16:32 | disposition home or self-care (01) ==
LOC: ER 14:55
PROC: 0RSKXZZ Reposition Left Shoulder Joint, External Approach (ICD-10-PCS; principal; 2018-05-03)
DX: M24.412 Recurrent dislocation, left shoulder (principal); W17.89XA Other fall from one level to another, initial encounter; Y93.89 Activity, other specified; Y92.009 Unspecified place in unspecified non-institutional (private) residence as the place of occurrence of the external cause; Z79.82 Long term (current) use of aspirin; Z98.82 Breast implant status; I10 Essential (primary) hypertension
CPT/HCPCS: 96361; 96374; 96375; 99284; J2250; J2405; J3010

== ENCOUNTER 2018-09-20 06:21 | Day surgery (SDC) | payer OTHER ==
[2018-08-28 10:47] LABS: Absolute Lymphocytes (CBC) 1.8 K/uL (0.7-4.9); Absolute Monocytes 0.4 K/uL (0.1-1.3); Absolute Neutrophil 2.7 K/uL (1.8-8.0); Basophils % 0.9 % (0-1.3); Eosinophils % 4.4 % (0-4.4); Hematocrit 40.1 % (36.0-45.0); Lymphocytes % 34.7 % (15.3-44.8); MPV 8.9 fL (7.6-11.3); RBC Red Blood Cell Count 4.03 M/uL (3.86-4.86)
[2018-08-28 10:52] LABS: Protime INR 0.91
[2018-08-28 10:58] LABS: Potassium 4.1 mmol/L (3.5-5.1)
--- NOTE | 2018-08-28 14:36 | EKG ---
Test Date: 2018-08-28 Test Time: 09:55:34 [place] Regulator: TAZ MEASUREMENT RESULTS: Intervals: Rate: 75 WY: 146 QRSD: 96 QT: 416 QTc: 464 [place]: P: 36 WY: 146 QRS: 56 T: 19 INTERPRETIVE STATEMENTS: Normal sinus rhythm Nonspecific T wave abnormality Prolonged QT Abnormal ECG Compared to ECG 12/13/2017 00:31:15 T-wave abnormality now present Prolonged QT interval now present Electronically Signed On 08-28-18 14:35:26 YOUTH OFFICER by Hunter Weaver
--- OUTSIDE RECORDS SUMMARY | 2018-09-20 06:23 | XMS REPORT ---
:1985 Author Organization [employer] Care Team Providers Name Role Phone Maxi Ness Provider Role Unavailable Allergies No Known Allergies Problems Problem Type Condition Code Onset Dates Condition Status Problem Dislocation of left shoulder S43.005A Active joint, initial encounter Problem Recurrent anterior dislocation of M24.412 Active left shoulder Problem Pain, joint, shoulder, left M25.512 Active Medications No Known Medications Results No Known Results Summary Purpose [employer] Submission
--- OUTSIDE RECORDS SUMMARY | 2018-09-20 06:23 | XMS REPORT ---
:1985 Author Organization [employer] Care Team Providers Name Role Phone Maxi Ness Provider Role Unavailable Allergies No Known Allergies Problems Problem Type Condition Code Onset Dates Condition Status Problem Dislocation of left shoulder S43.005A Active joint, initial encounter Problem Recurrent anterior dislocation of M24.412 Active left shoulder Problem Pain, joint, shoulder, left M25.512 Active Medications Medication Code System Code Instructions Start End Date Status Dosage Date [facility] 22852031965 7.5-325 MG Orally Aug 28, Sep 07, Active 1 tablet every 6 hrs 2017 2018 as needed Results No Known Results Summary Purpose [employer] Submission
--- OUTSIDE RECORDS SUMMARY | 2018-09-20 06:23 | XMS REPORT ---
:1985 Author Organization [employer] Care Team Providers Name Role Phone Maxi Ness Provider Role Unavailable Allergies, Adverse Reactions, Alerts Substance Reaction Event Type N.K.D.A. Info Not Available Non Drug Allergy Problems Problem Type Condition Code Onset Dates Condition Status Problem Dislocation of left shoulder S43.005A Active joint, initial encounter Problem Recurrent anterior dislocation of M24.412 Active left shoulder Problem Pain, joint, shoulder, left M25.512 Active Assessment Superior glenoid labrum lesion of S43.432A Active left shoulder, initial encounter Assessment Bankart lesion of left shoulder, S43.492A Active initial encounter Assessment Pain, joint, shoulder, left M25.512 Active Medications Medication Code Code Instructions Start End Status Dosage System Date Date ASA [facility] 14548561394 Oral Active 1 tab Nadolol [facility] 79374108143 40 MG Orally Active 1 tablet Once a day Levothyroxine [facility] 96526669236 125 MCG Orally Active 1 tablet Sodium Once a day on an empty stomach in the morning Lamictal [facility] 35587949926 100 MG Orally Active 2 tablets Twice a day Results No Known Results Summary Purpose [employer] Submission
[2018-09-20] MEDS ORDERED: CEFAZOLIN 1GM (PREMIX IV) 1 GM/50 ML BAG ONE (06:41)
[2018-09-20] MEDS ORDERED: Ringers Lactate 1,000 ML IV ONE ×2 (06:41→07:16)
[2018-09-20] MEDS ORDERED: LIDOCAINE 1% MPF 5 ML VIAL ONE (06:50)
[2018-09-20] MEDS ORDERED: MIDAZOLAM HCL 2 MG/2 ML INJ ONE (07:01)
[2018-09-20] MEDS ORDERED: PROPOFOL 200 MG/20 ML VIAL IV ONE (07:01)
[2018-09-20] MEDS ORDERED: ROCURONIUM 50 MG/5 ML VIAL IV ONE (07:01)
[2018-09-20] MEDS ORDERED: LIDOCAINE 2% MPF 5 ML VIAL ONE (07:01)
[2018-09-20] MEDS ORDERED: FENTANYL CITR 250 MCG/5 ML ONE (07:01)
[2018-09-20] MEDS ORDERED: ROPLVACAINE HCL 40 ML ONE (07:09)
[2018-09-20] MEDS ORDERED: DEXAMETHASONE 4 MG/ML VIAL ONE ×2 (07:09→10:32)
[2018-09-20] MEDS ORDERED: EPINEPHRINE/PF 1 MG/ML AMP ONE (07:16)
[2018-09-20] MEDS ORDERED: ONDANSETRON 4 MG/2 ML VIAL ONE (07:46)
[2018-09-20] MEDS ORDERED: KETOROLAC 30 MG/ML INJ ONE (09:37)
--- NOTE | 2018-09-20 09:54 | P.BOP ---
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
[2018-09-20] MEDS ORDERED: PROMETHAZINE 25 MG/ML VIAL ONE (10:13)
--- NOTE | 2018-09-20 10:18 | RAD REPORT ---
EXAM DESCRIPTION: RAD - Shoulder 1 View - 09/20/2018 10:11 am CLINICAL HISTORY: s/p l shoulder arthroscopy Shoulder pain COMPARISON: Shoulder Left Wo Cont dated 05/14/2018 FINDINGS: A single AP internal rotation projection left shoulder is submitted, demonstrating no sign ificant bone or joint abnormality.
[2018-09-20] MEDS ORDERED: METOCLOPRAMIDE 10 MG/2mL INJ ONE (10:22)
[2018-09-20] MEDS ORDERED: SCOPOLAMINE HYDROBROMIDE PATCH TD ONE (10:32)
[2018-09-20] MEDS ORDERED: HYDROCODONE/APAP 7.5/325 MG TAB ONE (12:26)
--- NOTE | 2018-09-24 14:24 | OP ---
Date of Procedure: 09/20/2018 Surgeon: Maxi Ness MD Preoperative Diagnoses: 1. Left shoulder SLAP tear. 2. Left shoulder Bankart tear. Postoperative Diagnosis: Left shoulder Bankart tear. Procedure Performed: Left shoulder arthroscopic Bankart repair. Anesthesia: General endotracheal. Fluids: Per Anesthesia record. Estimated Blood Loss: 10 cc. Complications: None. Implants: Three 2.9 mm Arthrex PushLock with 3 SutureTapes. 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 The patient has MRI of left shoulder, which demonstrated a possible SLAP tear as well as a Bankart tear. I discussed with the patient at length risks and benefits associated with operative and nonoperative treatment given her recurrent dislocations and instability, I recommended operative care. She expressed understanding and agreed to proceed with operative treatment. Description Of Procedure: After informed consent was obtained, the patient was identified in the preoperative holding area. The left upper extremity was marked. The patient was then taken to the PACU and underwent an interscalene block performed by Anesthesia. This was performed, she was transferred to the operating room, transferred to the operating table in a supine fashion and placed under general endotracheal anesthesia. She was then placed in the right lateral decubitus position. Her extremities were well padded. An axillary roll was placed. Her left upper extremity was then examined. The patient had full range of motion and some anterior subluxation was noted. The left upper extremity was then prepped and draped in usual sterile fashion. A time-out was initiated. The correct patient and procedure were confirmed and identified. The patient did receive a preoperative prophylactic antibiotics. She was then placed in a lateral shoulder positioner with mild distraction noted at the glenohumeral joint. A posterior portal was created and arthroscope was brought into the glenohumeral joint after I injected the joint with 30 cc of normal saline to distend the capsule. The anterior and superior portals were created and cannula was placed in each. A low anterior 7 mm cannula was placed just above the subscapularis under direct visualization for placement of the anchors and labral separation. The patient was noted to have an intact superior labrum with no elevation of the superior labrum off the glenoid. The biceps anchor was found to be intact with no fraying. The subscapularis as well as supraspinatus were all found to be intact. The posterior labrum was also noted to be intact and stable to probe. The patient was noted to have a Bankart tear of the anterior labrum from 7 o'clock position to the 10 o'clock position and the labrum was sitting low on the glenoid. An elevator was then used to elevate the anterior labrum off the glenoid. After this elevation of tissue I was able to see the subscapularis muscle fibers. The anterior labrum drifted higher on the base of the glenoid after the tissue was elevated. Next, a 45- degree SutureLasso was then placed through the anterior cannula and the anterior capsule as well as the labrum and brought onto the glenoid using a suture tape onto glenoid surface. A 2.9 mm PushLock was placed on the base of the glenoid at approximately the 7 o'clock position, bringing up the anterior- inferior capsule and labrum was reduced glenoid surface and created a nice bumper. The Lasso was passed just superior to that and a second anchor was placed at approximately 8:30 position on the glenoid followed by the third anchor placed at approximately 10 o'clock on the glenoid. the Lasso was used to capture anterior capsule and labrum creating a bumper on the glenoid. A SutureTape was passed using a luggate stitch. There was good overall repair of the labrum onto the anterior glenoid. A probe was then used to ensure proper fixation of the tissue on the glenoid and there was overall good stabilization of the capsule and labrum off the glenoid. Arthroscopic instruments were then removed without complication. The portals were approximated using 2-0 Vicryl and 3-0 Monocryl. Sterile dressings were applied. The patient was placed in a shoulder immobilizer, awakened, and transferred to the PACU in stable condition. Postoperative Plan: She will be nonweightbearing of her left upper extremity. Physical Therapy will be consulted to aid in mobilization. She will follow the Bankart stabilization protocol. CARON/ROYER Voice ID: [id number] Report ID: [id number] CROW
== END 2018-09-20 13:10 | disposition home or self-care (01) ==
LOC: OR 06:21
PROVIDERS: ATTEND Orthopaedic Surgery Sports Medicine
PROC: 0RQK4ZZ Repair Left Shoulder Joint, Percutaneous Endoscopic Approach (ICD-10-PCS; principal; 2018-09-20 07:30)
DX: S43.432A Superior glenoid labrum lesion of left shoulder, initial encounter (principal); I10 Essential (primary) hypertension; Z86.73 Personal history of transient ischemic attack (TIA), and cerebral infarction without residual deficits
CPT/HCPCS: 36415; 73020; 80048; 85025; 85610; 85730; 93005; J0171; J0690; J2250; J2405; J2550; J2704; J2765; J2795; J3010